=== PATIENT | male | born 1945 | race Caucasian/White ===

== ENCOUNTER 2019-12-28 19:00 | Emergency (ER) | payer MEDICARE, BC, SELFPAY ==
--- NOTE | ~2019-12-28 | XR_ITS ---
XR chest 2V 12/28/2019 19:27 Indication: Shortness of breath. Lung cancer. Procedure: 2 view chest Comparison: Comparison to multiple prior studies sequentially, with oldest reviewed study dated 06/2010. Findings: Cardiomegaly. Pacemaker leads stable. There is bibasilar airspace disease, right greater th an left, compatible with pneumonia. There are emphysematous changes. Small pleural effusions. Healed left clavicular fracture. Impression: 1: Bibasilar airspace disease, compatible with pneumonia. 2: Small pleural effusions. 3: Cardiomegaly. Reviewed, dictated and finalized at location A. RITY COORDINATOR Impression: 1: Bibasilar airspace disease, compatible with pneumonia. 2: Small pleural effusions. 3: Cardiomegaly.
[2019-12-28 18:59] VITALS: BP 112/78; PULSE 106; RESP 24; TEMP 36.5; O2SAT 100
--- NOTE | 2019-12-28 19:03 | ED.SOB ---
HPI - SOB/Dyspnea General Chief Complaint: Shortness of Breath/Dyspnea Stated Complaint: sob Time Seen by Provider: 12/28/19 19:02 Source: patient and family (spouse) Mode of arrival: EMS Limitations: no limitations History of Present Illness HPI Narrative: The pt is a 74 y/o male who presents to the ED with c/o SOB, via EMS, that began 3 hours ago. The pt states that his SOB started soon after putting his CPAP on tonight, but his argues and notes that his CPAP helped him the night before. The currently feels better in the ED bed after O2 administration. He reports a cough for the last week, chills, generalized weakness, and chronic shakes, but denies fever or CP. The pt has COPD and stage 4 lung CA. Per , the pt was responding very well to chemotherapy and was switched over to immunotherapy at the end of September. She states that the pt's CA is almost all gone but is concerned that the pt has pneumonia. MD elicited complaint: shortness of breath Pertinent past history: COPD and other (lung CA) Onset (ago): hour(s) (3) Relieving factors: oxygen Associated symptoms: cough and other (chills, generalized weakness, chronic shakes) Related Data Home Medications Medication Instructions Recorded Confirmed albuterol sulfate [ProAir HFA] 2 puff INHALATION QID PRN 09/11/19 10/31/19 alprazolam 2 mg PO HS 09/11/19 10/31/19 amitriptyline 25 mg PO HS 09/11/19 10/31/19 aspirin [Aspirin Childrens] 81 mg PO HS 09/11/19 10/31/19 clopidogrel 75 mg PO DAILY 09/11/19 10/31/19 dicyclomine 20 mg PO PRN 09/11/19 10/31/19 furosemide 20 mg PO DAILY 09/11/19 10/31/19 ipratropium-albuterol 3 ml INHALATION QID PRN 09/11/19 10/31/19 linaclotide [Linzess] 290 mcg PO DAILY 09/11/19 10/31/19 mexiletine 150 mg PO Q12H 09/11/19 10/31/19 simvastatin 40 mg PO HS 09/11/19 10/31/19 ferrous sulfate [Iron (ferrous 325 mg PO BID 10/03/19 10/31/19 sulfate)] gabapentin 300 mg PO TID 10/03/19 10/31/19 Allergies Allergy/AdvReac Type Severity Reaction Status Date / Time hydromorphone AdvReac Severe Hallucinati Verified 12/28/19 19:04 ng morphine AdvReac Severe Nausea and Verified 12/28/19 19:04 Vomiting Review of Systems Review of Systems: All systems reviewed & are unremarkable except as noted in HPI and below Constitutional: Constitutional: Reports chills, Denies fever(s), Reports weakness (generalized) and Reports other (chronic shakes) Cardiovascular: Cardiovascular: Denies chest pain Respiratory: Respiratory: Reports cough and Reports dyspnea PMFSH Past Medical History Medical History (Updated 12/29/19 @ 03:37 by Freddie Thomas MD) Anxiety Arthritis Asthma Back pain CAD (coronary artery disease) COPD (chronic obstructive pulmonary disease) Hyperlipidemia Hypertension Irregular heartbeat Irritable bowel Kidney stones Lung cancer Myocardial infarct Pacemaker Port-A-Cath in place Shingles Sleep apnea Surgical History Surgical History (Updated 12/28/19 @ 19:20 by Norah Mejia) H/O cardiac radiofrequency ablation H/O cystoscopy H/O Spinal surgery History of cardiac cath History of cataract surgery History of coronary artery stent placement Family History Family History Sibling Family history of cardiovascular disease Social History Social History (Updated 12/28/19 @ 19:20 by Norah Mejia) Smoking status: Former smoker Smoking end date: 05/27/19 Alcohol intake: never Exam Const: General: ill appearing chronically and other (elderly) HENMT: Mouth: Yes lip normal and Yes moist mucous membranes Eyes: Conjunctivae: conjunctivae normal Pupils: Equal, round and reactive pupils present Resp: Effort & Inspection: normal respiratory effort and tachypneic (mildy) Auscultation: wheezes expiratory wheezes Cardio: Rate: tachycardic (mildy) Rhythm: regular rhythm GI: GI Palp: Yes Soft to palpation and No Tenderness to palpation pres
[2019-12-28] MEDS: SODIUM CHLORIDE 0.9% IV 500 ML 999 ML IV CONT (19:50)
[2019-12-28 19:52] LABS: Basophils Percent Auto 0.4 % (0.2-1.2); Eosinophils Absolute Auto 0.2 K/mm3 (0-0.3); Eosinophils Percent Auto 3.5 % (0-4.4); Hematocrit 33.7 % (42.0-52.0); Hemoglobin 10.6 g/dL (14.0-18.0); Immature Granulocyte Absolute 0.02 K/mm3 (0.00-0.031); Immature Granulocyte Percent A 0.4 % (0-0.5); Lymphocytes Absolute Auto 0.84 K/mm3 (0.9-3.2); Lymphocytes Percent Auto 15.3 % (18.3-44.2); Mean Corpuscular HGB Conc 31.5 g/dl (32-36); Mean Corpuscular Hemoglobin 31.5 pg (26-34); Mean Corpuscular Volume 100.3 fl (80-100); Mean Platelet Volume 9.9 fl (7.4-10.4); Monocytes Absolute Auto 0.4 K/mm3 (0.1-0.6); Monocytes Percent Auto 7.5 % (2.6-8.5); Neutrophils Percent Auto 72.9 % (45.5-73.1); Platelet Count Result 191 k/mm3 (150-375); Red Blood Count 3.36 M/mm3 (4.6-6.20); Red Cell Distribution Width 14.1 % (11.5-14.5); White Blood Count 5.5 K/mm3 (4.5-10.0)
[2019-12-28 20:06] VITALS: BP 114/50; PULSE 96; RESP 18; O2SAT 98
[2019-12-28 20:07] LABS: Blood Urea Nitrogen 19 mg/dL (9-20); Carbon Dioxide 22 mmol/L (22-30); Chloride 103 mmol/L (98-107); Estimated CRCL calculation 52 ml/min; Estimated Glomerular Filt Rate > 60; Glucose 110 mg/dL (75-110); Potassium 3.2 mmol/L (3.4-5.0); Sodium 134 mmol/L (137-145)
[2019-12-28] MEDS: AMOXICILLIN/CLAVULANATE K 875-125 MG TAB 1 TABLET PO (21:08)
[2019-12-28] MEDS: AZITHROMYCIN 250 MG TABLET 500 MG PO (21:08)
[2019-12-28 21:17] VITALS: BP 127/77; PULSE 84; RESP 20; O2SAT 98
== END 2019-12-28 21:19 | disposition home or self-care (01) ==
PROVIDERS: Emergency Provider Emergency Medicine; PCP Internal Medicine
DX: J18.9 Pneumonia, unspecified organism (principal); J44.9 Chronic obstructive pulmonary disease, unspecified; C34.90 Malignant neoplasm of unspecified part of unspecified bronchus or lung; M19.90 Unspecified osteoarthritis, unspecified site; F41.9 Anxiety disorder, unspecified; I25.10 Atherosclerotic heart disease of native coronary artery without angina pectoris; E78.5 Hyperlipidemia, unspecified; I10 Essential (primary) hypertension; K58.9 Irritable bowel syndrome, unspecified; Z87.442 Personal history of urinary calculi; I25.2 Old myocardial infarction; Z95.0 Presence of cardiac pacemaker; G47.30 Sleep apnea, unspecified; Z95.5 Presence of coronary angioplasty implant and graft; Z98.49 Cataract extraction status, unspecified eye; Z87.891 Personal history of nicotine dependence; Z79.82 Long term (current) use of aspirin; I51.7 Cardiomegaly
CPT/HCPCS: 36415; 71046; 80048; 85025; 96360; 99283; A9270; J7040

== ENCOUNTER 2020-01-17 11:08 | Outpatient (CLI) | payer MEDICARE, BC, SELFPAY ==
[2020-01-17 12:27] LABS: Basophils Percent Auto 0.3 % (0.2-1.2); Eosinophils Absolute Auto 0.2 K/mm3 (0-0.3); Eosinophils Percent Auto 2.6 % (0-4.4); Hematocrit 37.2 % (42.0-52.0); Hemoglobin 11.6 g/dL (14.0-18.0); Immature Granulocyte Absolute 0.02 K/mm3 (0.00-0.031); Immature Granulocyte Percent A 0.3 % (0-0.5); Lymphocytes Percent Auto 17.5 % (18.3-44.2); Mean Corpuscular HGB Conc 31.2 g/dl (32-36); Mean Corpuscular Hemoglobin 31.4 pg (26-34); Mean Corpuscular Volume 100.8 fl (80-100); Mean Platelet Volume 10.1 fl (7.4-10.4); Monocytes Absolute Auto 0.5 K/mm3 (0.1-0.6); Monocytes Percent Auto 7.2 % (2.6-8.5); Neutrophils Absolute Auto 4.5 K/mm3 (1.3-6.7); Neutrophils Percent Auto 72.1 % (45.5-73.1); Platelet Count Result 198 k/mm3 (150-375); Red Blood Count 3.69 M/mm3 (4.6-6.20); Red Cell Distribution Width 13.8 % (11.5-14.5); White Blood Count 6.3 K/mm3 (4.5-10.0)
[2020-01-17 12:38] LABS: Blood Urea Nitrogen 26 mg/dL (9-20); Calcium 8.7 mg/dL (8.4-10.2); Carbon Dioxide 29 mmol/L (22-30); Chloride 102 mmol/L (98-107); Estimated Glomerular Filt Rate > 60; Glucose 87 mg/dL (75-110); Potassium 3.8 mmol/L (3.4-5.0); Sodium 139 mmol/L (137-145)
== END 2020-01-17 11:09 | disposition home or self-care (01) ==
PROVIDERS: PCP Internal Medicine; Visit Provider Internal Medicine Hematology & Oncology
DX: C34.92 Malignant neoplasm of unspecified part of left bronchus or lung (principal)
CPT/HCPCS: 36415; 36592; 80048; 85025

== ENCOUNTER 2020-01-20 14:59 | Outpatient (CLI) | payer MEDICARE, BC, SELFPAY ==
--- NOTE | ~2020-01-20 | CT_ITS ---
EXAMINATION: CT chest w con DATE: 01/20/2020 15:35 INDICATION: Left lung cancer TECHNIQUE: Transaxial computed tomographic images of the chest were obtained after the administration of 75 cc of Omnipaque 350 intravenous contrast. The dose-length product (DLP) was 151.17 mGy-cm. Ite rative reconstruction was used. COMPARISON: 10/14/2019 FINDINGS: A 2.5 x 1.5 cm nodule of the left upper lobe measured 1.8 x 1.0 cm on the most recent tyler rison. There is a new 2.5 x 1.5 cm nodular opacity of the right lower lobe on image 106. There is a 6 mm subpleural nodule of the right lower lobe on image 82. A small to moderate-sized right pleural ef fusion has developed. There is a small left pleural effusion. No pneumothorax is identified. A calcif ied nodule of the right lower lobe is consistent with old granulomatous disease. A right internal jug ular Port-A-Cath ends with its tip in the superior vena cava. There is a dual-lead pacemaker of the l eft chest wall which ends with its leads in the right atrium and right ventricle. Cardiomegaly is not ed. Right hilar and mediastinal lymphadenopathy appears stable. There is a chronic compression fractu re of T12. IMPRESSION: 1. Interval enlargement of a left upper lobe nodule compared to the most recent examination, concerni ng for progression of disease. 2. New nodular opacity of the right lower lobe. Although finding could be due to infection or inflamm ation given the short interval between examinations, malignancy is not excluded. Short-term follow-up is recommended. 3. Small left pleural effusion and new small to moderate size right pleural effusion. 4. Stable right hilar and mediastinal lymphadenopathy, reactive versus metastatic. Reviewed, dictated and finalized at location A. CAL ASSISTANT PER DIEM IMPRESSION: 1. Interval enlargement of a left upper lobe nodule compared to the most recent examination, concerning for progression of disease. 2. New nodular opacity of the right lower lobe. Although finding could be due t o infection or inflammation given the short interval between examinations, dameon gnancy is not excluded. Short-term follow-up is recommended. 3. Small left pleural effusion and new small to moderate size right pleural eff usion. 4. Stable right hilar and mediastinal lymphadenopathy, reactive versus metastat ic.
== END 2020-01-20 15:00 | disposition home or self-care (01) ==
PROVIDERS: PCP Internal Medicine; Visit Provider Internal Medicine Hematology & Oncology
DX: C34.92 Malignant neoplasm of unspecified part of left bronchus or lung (principal); J90 Pleural effusion, not elsewhere classified; R91.8 Other nonspecific abnormal finding of lung field
CPT/HCPCS: 71260; Q9967

== ENCOUNTER 2020-01-28 15:19 | Outpatient (CLI) | payer MEDICARE, BC, SELFPAY ==
--- NOTE | 2020-01-30 00:12 | WPDSIXMINUTE ---
Six Minute Walk Six Minute Walk: DOS: 01/27/2020 REQUESTING: Brennon Alcazar NP REASON FOR TESTING: Shortness of breath SIX MINUTE WALK This test was conducted per ATS guidelines. The initial saturation was 96%, pulse was 92. The patient walked for 6 minutes without stopping, with a drop in saturation to 93% with increase in heart rate to 152 at 3 minutes. During recovery, pulse decreased to 102, saturation was 99%. The distance walked was 225 feet/68.5 meters. This is less than predicted for his age. He used a cane then a walker during the study. He rested for 20 seconds due to shortness of breath. IMPRESSION: This 6 minute walk shows no significant hypoxemia, and no need for supplemental oxygen with exertion. Distance walked is less than expected for age. Adela Dunham MD
== END 2020-01-28 15:20 | disposition home or self-care (01) ==
LOC: ANHPFT 15:19
PROVIDERS: PCP Internal Medicine; Visit Provider Nurse Practitioner Family
DX: R06.02 Shortness of breath (principal)
CPT/HCPCS: 94618

== ENCOUNTER 2020-02-07 17:17 | Inpatient (IN) | payer MEDICARE, BC, SELFPAY ==
--- NOTE | ~2020-02-07 | XR_ITS ---
XR chest 2V 02/07/2020 17:49 Indication: Shortness of breath Procedure: 2 view chest Comparison: Comparison to multiple prior studies sequentially, with oldest reviewed study dated 06/2018. Findings: Cardiomegaly. Bibasilar airspace disease, compatible with pneumonia. Small pleural effusion s. Port catheter tip in the SVC. No pneumothorax or edema. There is a healed left clavicular fracture . Impression: 1: Bibasilar pneumonia with small pleural effusions. Reviewed, dictated and finalized at location A. Impression: 1: Bibasilar pneumonia with small pleural effusions.
--- NOTE | ~2020-02-07 | XR_ITS ---
XR chest 2V DATE: 02/10/2020 13:13 INDICATION: Cough. Pneumonia. Lung cancer. TECHNIQUE: AP and lateral views COMPARISON: 02/06/2022 view chest FINDINGS: Left-sided defibrillator/pacemaker device with leads overlying right atrium and right ventr icle. Right internal jugular Port-A-Cath catheter tip overlies the superior vena cava near the right atrial junction. Cardiomegaly. There is pulmonary vascular redistribution consistent with pulmonary venous hypertensio n. There are mild bilateral pleural effusions. There are patchy infiltrates in both lower lung zones which appears stable or mildly improved since . Old healed fracture deformity of the left clavicular shaft. Diffuse osteopenia. There is mild dextro scoliosis and moderately prominent degenerative spurring of the thoracic spine. IMPRESSION: Stable or mildly improved bilateral lower lung infiltrates since 02/07/2020 Cardiomegaly, pulmonary vascular redistribution, mild bilateral pleural effusions, suggesting mild co ngestive heart failure Reviewed, dictated and finalized at location B. IMPRESSION: Stable or mildly improved bilateral lower lung infiltrates since Cardiomegaly, pulmonary vascular redistribution, mild bilateral pleural effusio ns, suggesting mild congestive heart failure
--- NOTE | ~2020-02-07 | NM_ITS ---
EXAMINATION: NM hepatobiliary w pharm EXAM DATE: 02/12/2020 13:02 INDICATION: Right upper quadrant pain, possible acute cholecystitis. Gallbladder wall thickening, cho lelithiasis. TECHNIQUE: 5 mCi Tc-99m mebrofenin (Choletec) was administered intravenously. Scintigraphic images o f the abdomen were obtained for one hour. At the 1 hour time point, 1.0 mcg sincalide (Kinevac) was a dministered by slow intravenous infusion, and imaging was continued for 30 minutes. Gallbladder eject ion fraction was calculated by the technologist. Correlation is made to right upper quadrant sonogram from yesterday. FINDINGS: There is normal clearance of radiotracer from the blood pool. There is homogeneous tracer u ptake by the liver. Activity progresses to the gallbladder and bowel. The gallbladder ejection fract ion (GBEF) is 1 % (most patients with gallbladder dysfunction have GBEF < 35%, but there is overlap w ith the normal range of 10-90%). IMPRESSION: Gallbladder ejection fraction 1 % consistent with gallbladder dysfunction and/or chronic cholecystitis. Reviewed, dictated and finalized at location A. IMPRESSION: Gallbladder ejection fraction 1 % consistent with gallbladder dysf unction and/or chronic cholecystitis.
--- NOTE | ~2020-02-07 | US_ITS ---
EXAMINATION: US right upper quadrant DATE: 02/11/2020 17:15 INDICATION: Acute transaminitis TECHNIQUE: Multiple grayscale and Doppler ultrasound images of the abdomen were obtained. COMPARISON: CT, 10/14/2019 FINDINGS: The head and and body of the pancreas are normal. The pancreatic tail is obscured by bowel gas. There is a right pleural effusion and a small amount of right upper quadrant ascites. The liver is normal with normal echogenicity and echotexture. No surface nodularity. Normal hepatopetal flow in the main portal vein. Stones are present in the gallbladder. There is gallbladder wall edema and wal l thickening measuring up to 5 mm. The normal common bile duct measures 4 mm. There was no sonographi c Aviles sign. IMPRESSION: 1. Cholelithiasis with gallbladder wall thickening and right upper quadrant ascites. Findings could r eflect acute cholecystitis. Consider nuclear hepatobiliary scan. Reviewed, dictated and finalized at location A. IMPRESSION: 1. Cholelithiasis with gallbladder wall thickening and right upper quadrant asc ites. Findings could reflect acute cholecystitis. Consider nuclear hepatobiliar y scan.
[2020-02-07 17:16] VITALS: BP 122/96; PULSE 118; RESP 21; TEMP 36.6; O2SAT 98
--- NOTE | 2020-02-07 17:34 | ED.SOB ---
HPI - SOB/Dyspnea General Chief Complaint: Shortness of Breath/Dyspnea Stated Complaint: SOB Time Seen by Provider: 02/07/20 17:18 Source: patient Mode of arrival: EMS Limitations: no limitations History of Present Illness HPI Narrative: A 74 y/o male pt presents to the ED, via EMS from home, with c/o SOB x a couple of months. Pt states his SOB began worsening last night and notes coughing up yellow sputum today. Pt notes feeling shaky, but denies CP, N/V/D, or fever/chills/sweats. He states that he is supposed to have fluid drained off of his lungs on 02/17/2020. Pt notes having CA in his lt lung that has spread. He states that his oncologist is Dr. Pride. He denies using O2 at home, but he is on O2 x 4L via NC with an O2 sat of 98% in the ED. MD elicited complaint: shortness of breath and cough Pertinent past history: other (lung CA) Onset (ago): month(s) Timing: progressively worsening Associated symptoms: cough, sputum production (yellow) and other (shaky) Related Data Home Medications Medication Instructions Recorded Confirmed albuterol sulfate [ProAir HFA] 2 puff INHALATION QID PRN 09/11/19 02/07/20 alprazolam 1 mg PO TID PRN 09/11/19 02/07/20 aspirin [Aspirin Childrens] 81 mg PO HS 09/11/19 02/07/20 clopidogrel 75 mg PO HS 09/11/19 02/07/20 dicyclomine 20 mg PO PRN PRN 09/11/19 02/07/20 furosemide 20 mg PO DAILY 09/11/19 02/08/20 linaclotide [Linzess] 290 mcg PO DAILY 09/11/19 02/07/20 simvastatin 40 mg PO HS 09/11/19 02/07/20 ferrous sulfate [Iron (ferrous 325 mg PO BID 10/03/19 02/07/20 sulfate)] gabapentin 300 mg PO TID 10/03/19 02/07/20 budesonide 0.5 mg/2 mL suspension 0.5 mg INHALATION BID ml 01/20/20 01/20/20 for nebulization guaifenesin 600 mg tablet, 600 mg PO Q12H 01/20/20 02/07/20 extended release 12 hr ipratropium bromide 0.02 % 2.5 ml INHALATION QID PRN 01/20/20 02/07/20 solution for inhalation mexiletine 150 mg capsule 150 mg PO TID cap 01/20/20 02/07/20 ondansetron 4 mg disintegrating 4 mg PO Q8H 01/20/20 02/07/20 tablet zolpidem 10 mg PO HS PRN 02/07/20 02/08/20 Allergies Allergy/AdvReac Type Severity Reaction Status Date / Time hydromorphone AdvReac Severe Hallucinati Verified 02/07/20 17:29 ng morphine AdvReac Severe Nausea and Verified 02/07/20 17:29 Vomiting Review of Systems Review of Systems: All systems reviewed & are unremarkable except as noted in HPI and below Constitutional: Constitutional: Denies chills, Denies excessive sweating, Denies fever(s) and Reports other (shaky) Cardiovascular: Cardiovascular: Denies chest pain Respiratory: Respiratory: Reports cough (with yellow sputum) and Reports dyspnea Gastrointestinal: Gastrointestinal: Denies diarrhea, Denies nausea and Denies vomiting PMFSH Past Medical History Medical History Anxiety Arthritis Asthma Back pain CAD (coronary artery disease) COPD (chronic obstructive pulmonary disease) Hyperlipidemia Hypertension Irregular heartbeat Irritable bowel Kidney stones Lung cancer Myocardial infarct Pacemaker Port-A-Cath in place Shingles Sleep apnea Surgical History Surgical History H/O cardiac radiofrequency ablation H/O cystoscopy H/O Spinal surgery History of cardiac cath History of cataract surgery History of coronary artery stent placement Family History Family History Sibling Family history of cardiovascular disease Congestive heart failure Acute myocardial infarction Mother Acute myocardial infarction Congestive heart failure Father Acute myocardial infarction Congestive heart failure Sibling Acute myocardial infarction Congestive heart failure Asthma Sibling Asthma Social History Social History Smoking packs per day: 1 Smoking cigarettes per day: 20.0 Y
--- NOTE | 2020-02-07 17:41 | ECG_ITS ---
Measurements Intervals [place] Rate: 116 P: 113 DC: 162 QRS: -68 QRSD: 144 T: 76 QT: 368 QTc: 513 Interpretive Statements SINUS TACHYCARDIA FREQUENT VENTRICULAR PREMATURE COMPLEXES POSSIBLE LEFT ATRIAL ENLARGEMENT LEFT AXIS DEVIATION INTRAVENTRICULAR CONDUCTION DELAY BORDERLINE ST-T WAVE ABNORMALITY- LATERAL LEADS BASELINE WANDER- V1-V3, V6 ABNORMAL ECG Electronically Signed On 02-08-2020 7:52:03 CDT by Ramses Rodriguez D.O.
[2020-02-07 18:24] LABS: Hematocrit 37.7 % (42.0-52.0); Hemoglobin 11.9 g/dL (14.0-18.0); Mean Corpuscular HGB Conc 31.6 g/dl (32-36); Mean Corpuscular Volume 98.2 fl (80-100); Mean Platelet Volume 10.3 fl (7.4-10.4); Platelet Count Result 153 k/mm3 (150-375); Red Blood Count 3.84 M/mm3 (4.6-6.20); Red Cell Distribution Width 14.1 % (11.5-14.5)
[2020-02-07] MEDS: IPRATROPIUM BR 0.02% INH SOLN 0.5 MG/2.5 ML VIAL INHALATION (18:26)
[2020-02-07 18:27] VITALS: PULSE 113; RESP 20
[2020-02-07 18:27] LABS: INR 1.3; Lactic Acid Reflex 1.3 mmol/L (0.7-2.1); Prothrombin Time 16.1 Seconds (11.1-14.7)
[2020-02-07] MEDS: ALBUTEROL SULFATE NEB 2.5 MG/0.5 ML INH 5 MG INHALATION (18:27)
[2020-02-07 18:28] LABS: Partial Thromboplastin Time 42.8 SECONDS (22.3-36.8)
[2020-02-07 18:29] LABS: Alanine Aminotransferase 17 U/L (4-50); Albumin Level 3.6 g/dL (3.5-5.1); Alkaline Phosphatase 63 U/L (38-126); Aspartate Amino Transferase 21 U/L (17-59); Bilirubin,Total 0.7 mg/dL (0.2-1.3); Blood Urea Nitrogen 29 mg/dL (9-20); Calcium 8.6 mg/dL (8.4-10.2); Carbon Dioxide 25 mmol/L (22-30); Chloride 101 mmol/L (98-107); Estimated CRCL calculation 54 ml/min; Estimated Glomerular Filt Rate > 60; Glucose 117 mg/dL (75-110); Potassium 4.2 mmol/L (3.4-5.0); Sodium 136 mmol/L (137-145)
[2020-02-07 18:32] VITALS: BP 114/81; PULSE 113; RESP 20; O2SAT 100
[2020-02-07 18:35] VITALS: PULSE 112; RESP 25
[2020-02-07 18:37] LABS: NT Pro B Type Natriuretic Pept 29600 PG/ML (5-100)
[2020-02-07 18:47] LABS: Lymphocytes Absolute Manual 0.33 K/mm3 (1.1-4.5); Monocytes Absolute Manual 0.55 K/mm3 (0.1-0.90); Monocytes Percent Manual 5 % (3-9); Neutrophils Percent Manual 92 % (46-73); Total Cells Counted 100
[2020-02-07 18:48] LABS: Platelet Estimate Adequate (Adequate)
[2020-02-07 18:49] LABS: Hypochromasia 1+ (NORMAL)
[2020-02-07] MEDS: FUROSEMIDE INJ 40 MG/4 ML VIAL IV PUSH ×2 (20:32→22:43)
--- NOTE | 2020-02-07 20:56 | PM.IMHP ---
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 He denies any fever or chills, no sore throat, chest pain, wheezing, abdominal pain, nausea, vomiting, diarrhea, LE pain or swelling. The patient last had chemotherapy this past Monday. EMS was called today as the patient was severely short of breath at home and he was found to be saturating 90% on room air on their arrival. The patient was brought to the ER and found to be hypoxic on room air. He was continued on 4L of oxygen via NC. CXR was obtained in the ER that demonstrated bibasilar pneumonia with small pleural effusions. We have been asked to admit the patient to the hospital for continued care. He has no other complaints. He recently had an ambulatory sat test which he did not qualify for home oxygen. Review of Systems Review of Systems: All systems reviewed & are unremarkable except as noted in HPI and below PMFSH Past Medical History Medical History Anxiety Arthritis Asthma Back pain CAD (coronary artery disease) COPD (chronic obstructive pulmonary disease) Hyperlipidemia Hypertension Irregular heartbeat Irritable bowel Kidney stones Lung cancer Myocardial infarct Pacemaker Port-A-Cath in place Shingles Sleep apnea Surgical History Surgical History H/O cardiac radiofrequency ablation H/O cystoscopy H/O Spinal surgery History of cardiac cath History of cataract surgery History of coronary artery stent placement Family History Family History Sibling Family history of cardiovascular disease Congestive heart failure Acute myocardial infarction Mother Acute myocardial infarction Congestive heart failure Father Acute myocardial infarction Congestive heart failure Sibling Acute myocardial infarction Congestive heart failure Asthma Sibling Asthma Social History Social History Smoking packs per day: 1 Smoking cigarettes per day: 20.0 Years smoked: 40 Smoking pack-years: 40.00 Smoking status: Former smoker Tobacco type: cigarettes Smoking end date: 05/27/19 Alcohol intake: never Substance use: current Substance use type: marijuana Other substance usage details: medical marijuana 4-5 times a day Gender identity (if verbalized by the patient): Male Spiritual care concerns: No Agree to blood products: Yes Meds Home Medications and Allergies Home Medications Medication Instructions Recorded Confirmed Type albuterol sulfate [ProAir HFA] 2 puff INHALATION QID PRN 09/11/19 01/20/20 History alprazolam 2 mg PO HS 09/11/19 01/20/20 History amitriptyline 25 mg PO HS 09/11/19 01/20/20 History aspirin [Aspirin Childrens] 81 mg PO HS 09/11/19 01/20/20 History clopidogrel 75 mg PO DAILY 09/11/19 01/20/20 History dicyclomine 20 mg PO PRN 09/11/19 01/20/20 History furosemide 20 mg PO DAILY 09/11/19 01/20/20 History linaclotide [Linzess] 290 mcg PO DAILY 09/11/19 01/20/20 History simvastatin 40 mg PO HS 09/11/19 01/20/20 History ferrous sulfate [Iron (ferrous 325 mg PO BID 10/03/19 01/20/20 History sulfate)] gabapentin 300 mg PO TID 10/03/19 01/20/20 History budesonide 0.5 mg/2 mL suspension 0.5 mg INHALATION BID ml 01/20/20 01/20/20 History for nebulization guaifenesin 600 mg tablet, 600 mg PO Q12H PRN 01/20/20 01/20/20 History extended release 12 hr ipratropium bromide 0.02 % 2.5 ml INHALATION QID PRN 01/20/20 01/20/20 History solution for inhalation mexiletine 150 mg capsule 150 mg PO TID cap 12/29
[2020-02-07 22:44] VITALS: BP 141/71; PULSE 106; RESP 18; TEMP 36.7; O2SAT 98
[2020-02-07 22:52] LABS: Add Urine Microscopic? NO; Appearance Urine Clear (Clear); Bilirubin Urine Negative (Negative); Blood Urine Negative (Negative); Color Urine Straw (Yellow); Glucose Urine UA Negative (Negative); Ketones Urine Negative (Negative); Leukocyte Esterase Ur Negative LEU/UL (Negative); Nitrate Urine Negative (Negative); Protein Urine Negative (Negative); Urobilinogen Urine Negative mg/dL (<2.0)
[2020-02-07 22:57] VITALS: BP 104/68; PULSE 109; RESP 26; TEMP 36.6; O2SAT 98
[2020-02-07 23:08] VITALS: BMI 20.9
--- NOTE | 2020-02-07 23:14 | ADMGEN ---
This patient, Marbin Shah Cate, was admitted to Medical Room 342-01. Patient/family oriented to hospital policies and general routines including ID bracelet, bed and alarms, visiting hours, pain management, procedures, bathroom and other care routines, personal items, smoking policy, room service/diet, and visiting hours. Valuables list has been completed. Information on how to activate the Rapid Response Team has been discussed. Patient/Family are encouraged to report perceived risks to care and to ask questions if they do not understand what they are told or what they should do.
[2020-02-08] VITALS (12 sets, daily range): BP systolic 94–106; BP diastolic 50–68; PULSE 68–114; RESP 18–26; TEMP 36.4–37.1; O2SAT 94–99
[2020-02-08] MEDS: SIMVASTATIN 20 MG TABLET PO ×2 (03:59→20:21)
[2020-02-08] MEDS: GABAPENTIN 300 MG CAPSULE PO ×4 (03:59→17:23)
[2020-02-08] MEDS: ALPRAZOLAM 0.5 MG TABLET 1 MG PO ×2 (03:59→20:22)
[2020-02-08] MEDS: ASPIRIN 81 MG CHEWABLE TABLET PO ×2 (03:59→20:22)
[2020-02-08] MEDS: CLOPIDOGREL BISULFATE 75 MG TABLET PO ×2 (04:00→20:22)
[2020-02-08 05:59] LABS: Basophils Percent Auto 0.1 % (0.2-1.2); Eosinophils Percent Auto 0.1 % (0-4.4); Hematocrit 31.1 % (42.0-52.0); Immature Granulocyte Absolute 0.03 K/mm3 (0.00-0.031); Immature Granulocyte Percent A 0.3 % (0-0.5); Lymphocytes Absolute Auto 0.55 K/mm3 (0.9-3.2); Lymphocytes Percent Auto 6.3 % (18.3-44.2); Mean Corpuscular HGB Conc 32.2 g/dl (32-36); Mean Corpuscular Hemoglobin 30.7 pg (26-34); Mean Corpuscular Volume 95.4 fl (80-100); Mean Platelet Volume 10.1 fl (7.4-10.4); Monocytes Absolute Auto 0.6 K/mm3 (0.1-0.6); Monocytes Percent Auto 7.1 % (2.6-8.5); Neutrophils Absolute Auto 7.5 K/mm3 (1.3-6.7); Neutrophils Percent Auto 86.1 % (45.5-73.1); Platelet Count Result 124 k/mm3 (150-375); Red Blood Count 3.26 M/mm3 (4.6-6.20); White Blood Count 8.7 K/mm3 (4.5-10.0)
[2020-02-08 06:11] LABS: Blood Urea Nitrogen 26 mg/dL (9-20); Calcium 8.2 mg/dL (8.4-10.2); Carbon Dioxide 31 mmol/L (22-30); Chloride 98 mmol/L (98-107); Estimated CRCL calculation 52 ml/min; Estimated Glomerular Filt Rate > 60; Glucose 111 mg/dL (75-110); Potassium 3.4 mmol/L (3.4-5.0); Sodium 135 mmol/L (137-145)
[2020-02-08] MEDS: MEXILETINE HCL 150 MG CAPSULE PO ×3 (09:07→17:22)
[2020-02-08] MEDS: FUROSEMIDE 20 MG TABLET PO (09:07)
[2020-02-08] MEDS: FERROUS SULFATE 324 MG TABLET PO ×2 (09:07→17:23)
[2020-02-08] MEDS: ROFLUMILAST 500 MCG TABLET PO (09:07)
[2020-02-08] MEDS: FLUTICASONE PROP 110 MCG INHALER 12 GM (*SP) 1 PUFF INHALATION ×2 (09:43→19:37)
--- NOTE | 2020-02-08 10:20 | P.PNIM_ITS ---
Progress Note: A&P Assessment and Plan (1) Community acquired pneumonia: Qualifiers: Laterality: unspecified laterality Qualified Code(s): J18.9 - Pneumonia, unspecified organism Code(s): J18.9 - Pneumonia, unspecified organism Status: Acute Assessment and Plan: Pt endorses dyspnea today with mild increased work of breathing. He is not in respiratory distress. He is on 1L NC. He endorses minimal cough today. WBC count is trending down. He is afebrile. * Continue bronchodilators * Continue guaifenesin * Continue oxygen supplementation to maintain pulse ox >94% * Continue empiric IV antibiotics azithromycin and ceftriaxone * Blood and sputum cultures are pending. Preliminary sputum cultures with mixed bacterial peewee from the lower respiratory tract. * Urine pneumococcal and legionella antigen ordere * Dr. Dunham has been consulted, recommendations are greatly appreciated (2) Squamous cell carcinoma of left lung: Code(s): C34.92 - Malignant neoplasm of unspecified part of left bronchus or lung Status: Acute Assessment and Plan: Dr. Pride and Dr. Dunham have been consulted. * Will await further recommendations from Dr. Pride who has been consulted (3) Sepsis: Qualifiers: Sepsis acute organ dysfunction status: without acute organ dysfunction Sepsis type: sepsis due to unspecified organism Qualified Code(s): A41.9 - Sepsis, unspecified organism Code(s): A41.9 - Sepsis, unspecified organism Status: Acute Assessment and Plan: Pt met SIRS criteria at admission. Source of sepsis appears to be pulmonary. Lactic acid WNL at admission. WBC count has normalized. BP is soft today. * BP is stable at this time. Pt has HFrEF of 30-35% so will only add IV fluids if BP drops. He is not tachycardic. * Continue empiric IV azithromycin and ceftriaxone * Cultures pending (4) Normocytic anemia: Code(s): D64.9 - Anemia, unspecified Status: Acute Assessment and Plan: * No signs of acute blood loss * Continue ferrous sulfate 325 PO BID * Will monitor hemoglobin and hematorcrit * Transfuse prn (5) COPD (chronic obstructive pulmonary disease): Qualifiers: COPD type: unspecified COPD Qualified Code(s): J44.9 - Chronic obstructive pulmonary disease, unspecified Code(s): J44.9 - Chronic obstructive pulmonary disease, unspecified Status: Suspected Assessment and Plan: * Continue levalbuterol and ipratropium * Continue fluticasone * Continue roflumilast (6) CAD (coronary artery disease): Qualifiers: Associated angina: without angina Coronary Disease-Associated Artery/Lesion type: [place]aver artery [place] vs. transplanted heart: beaver heart Qualified Code(s): I25.10 - Atherosclerotic heart disease of beaver coronary artery without angina pectoris Code(s): I25.10 - Atherosclerotic heart disease of beaver coronary artery without angina pectoris Status: Chronic Assessment and Plan: Pt is s/p pacemaker and defibrillator placement. He has hx of CHF with reduced EF of 30-35% per chart review of echo 06/20/19. He denies chest pain. * Continue plavix * Continue aspirin therapy * Continue to monitor (7) Hyperlipidemia: Qualifiers: Hyperlipidemia type: unspecified Qualified Code(s): E78.5 - Hyperlipidemia, unspecified Code(s): E78.5 - Hyperlipidemia, unspecified Status: Acute Assessment and Plan: * Continue simvas
--- NOTE | 2020-02-08 10:20 | PM.IMPN ---
Progress Note: A&P Assessment and Plan (1) Community acquired pneumonia: Qualifiers: Laterality: unspecified laterality Qualified Code(s): J18.9 - Pneumonia, unspecified organism Code(s): J18.9 - Pneumonia, unspecified organism Status: Acute Assessment and Plan: Pt endorses dyspnea today with mild increased work of breathing. He is not in respiratory distress. He is on 1L NC. He endorses minimal cough today. WBC count is trending down. He is afebrile. Continue bronchodilators Continue guaifenesin Continue oxygen supplementation to maintain pulse ox >94% Continue empiric IV antibiotics azithromycin and ceftriaxone Blood and sputum cultures are pending. Preliminary sputum cultures with mixed bacterial peewee from the lower respiratory tract. Urine pneumococcal and legionella antigen ordere Dr. Dunham has been consulted, recommendations are greatly appreciated (2) Squamous cell carcinoma of left lung: Code(s): C34.92 - Malignant neoplasm of unspecified part of left bronchus or lung Status: Acute Assessment and Plan: Dr. Pride and Dr. Dunham have been consulted. Will await further recommendations from Dr. Pride who has been consulted (3) Sepsis: Qualifiers: Sepsis acute organ dysfunction status: without acute organ dysfunction Sepsis type: sepsis due to unspecified organism Qualified Code(s): A41.9 - Sepsis, unspecified organism Code(s): A41.9 - Sepsis, unspecified organism Status: Acute Assessment and Plan: Pt met SIRS criteria at admission. Source of sepsis appears to be pulmonary. Lactic acid WNL at admission. WBC count has normalized. BP is soft today. BP is stable at this time. Pt has HFrEF of 30-35% so will only add IV fluids if BP drops. He is not tachycardic. Continue empiric IV azithromycin and ceftriaxone Cultures pending (4) Normocytic anemia: Code(s): D64.9 - Anemia, unspecified Status: Acute Assessment and Plan: No signs of acute blood loss Continue ferrous sulfate 325 PO BID Will monitor hemoglobin and hematorcrit Transfuse prn (5) COPD (chronic obstructive pulmonary disease): Qualifiers: COPD type: unspecified COPD Qualified Code(s): J44.9 - Chronic obstructive pulmonary disease, unspecified Code(s): J44.9 - Chronic obstructive pulmonary disease, unspecified Status: Suspected Assessment and Plan: Continue levalbuterol and ipratropium Continue fluticasone Continue roflumilast (6) CAD (coronary artery disease): Qualifiers: Associated angina: without angina Coronary Disease-Associated Artery/Lesion type: [place] artery [place] vs. transplanted heart: [place] heart Qualified Code(s): I25.10 - Atherosclerotic heart disease of [place] coronary artery without angina pectoris Code(s): I25.10 - Atherosclerotic heart disease of [place] coronary artery without angina pectoris Status: Chronic Assessment and Plan: Pt is s/p pacemaker and defibrillator placement. He has hx of CHF with reduced EF of 30-35% per chart review of echo 06/20/19. He denies chest pain. Continue plavix Continue aspirin therapy Continue to monitor (7) Hyperlipidemia: Qualifiers: Hyperlipidemia type: unspecified Qualified Code(s): E78.5 - Hyperlipidemia, unspecified Code(s): E78.5 - Hyperlipidemia, unspecified Status: Acute Assessment and Plan: Continue simvastatin 20mg (8) Congestive heart failure: Code(s): I50.9 - Heart failure, unspecified Status: Acute Assessment and Plan: Echo from 06/20/19 with reduced EF of 30-35%. BNP elevated at 29,600. Pt is s/p lasix IV 40mg IV x2. Pt has faint rales at the bases bilaterally. Suspect that he may have a component of acute on chronic CHF. Continue prior to admission lasix 20mg PO QD Will add IV lasix as needed 2gm sod
[2020-02-08] MEDS: IPRATROPIUM BR 0.02% INH SOLN 0.5 MG/2.5 ML VIAL INHALATION ×2 (15:14→19:37)
[2020-02-08] MEDS: LEVALBUTEROL NEB 1.25 MG/3 ML 0.63 MG INHALATION ×2 (15:14→19:36)
[2020-02-08] MEDS: ONDANSETRON INJ 4 MG/2 ML VIAL IV PUSH (19:41)
[2020-02-08] MEDS: ZOLPIDEM TARTRATE 5 MG TABLET 10 MG PO (20:30)
[2020-02-09] VITALS (9 sets, daily range): BP systolic 99–107; BP diastolic 60–70; PULSE 76–103; RESP 16–22; TEMP 36.4–36.9; O2SAT 95–100
[2020-02-09] MEDS: IPRATROPIUM BR 0.02% INH SOLN 0.5 MG/2.5 ML VIAL INHALATION (00:58)
[2020-02-09] MEDS: LEVALBUTEROL NEB 1.25 MG/3 ML 0.63 MG INHALATION (00:58)
[2020-02-09] MEDS: MEXILETINE HCL 150 MG CAPSULE PO ×3 (08:43→16:53)
[2020-02-09] MEDS: FUROSEMIDE 20 MG TABLET PO (08:46)
[2020-02-09] MEDS: GABAPENTIN 300 MG CAPSULE PO ×3 (08:46→16:55)
[2020-02-09] MEDS: ROFLUMILAST 500 MCG TABLET PO (08:46)
[2020-02-09] MEDS: FERROUS SULFATE 324 MG TABLET PO ×2 (08:47→16:55)
[2020-02-09] MEDS: polyethylene glycoL 3350 17 GM POWD.PACK PO (09:25)
[2020-02-09] MEDS: DOCUSATE SODIUM 100 MG CAPSULE PO ×2 (09:57→21:33)
--- NOTE | 2020-02-09 14:48 | PM.IMPN ---
Progress Note: A&P Assessment and Plan (1) Community acquired pneumonia: Qualifiers: Laterality: unspecified laterality Qualified Code(s): J18.9 - Pneumonia, unspecified organism Code(s): J18.9 - Pneumonia, unspecified organism Status: Acute Assessment and Plan: The pt reports that he is feeling much better today. He is on room air. He denies dyspnea. He reports productive cough. His sputum is opaque/white. Cough is improving. He denies fever, chills, and myalgias. Continue bronchodilators PRN Continue guaifenesin Continue oxygen supplementation to maintain pulse ox >94% Continue empiric IV antibiotics azithromycin and ceftriaxone. Abx were initiated 02/06. Blood cultures with NGTD. Preliminary sputum cultures with mixed bacterial peewee from the lower respiratory tract. Urine pneumococcal and legionella antigen ordered and pending Dr. Dunham has been consulted, recommendations are greatly appreciated (2) Squamous cell carcinoma of left lung: Code(s): C34.92 - Malignant neoplasm of unspecified part of left bronchus or lung Status: Acute Assessment and Plan: Dr. Pride and Dr. Dunham have been consulted. Pt was switched to immunotherapy at the end of September after adequate response to chemotherapy. He is on maintenance chemotherapy per Dr. Pride. CT chest wo contrast 01/21/20 with interval enlargement of left upper lobe nodule compared to most recent exam and a new nodular opacity of the right lower lobe. Will await further recommendations from Dr. Pride who has been consulted (3) Sepsis: Qualifiers: Sepsis acute organ dysfunction status: without acute organ dysfunction Sepsis type: sepsis due to unspecified organism Qualified Code(s): A41.9 - Sepsis, unspecified organism Code(s): A41.9 - Sepsis, unspecified organism Status: Acute Assessment and Plan: Pt met SIRS criteria at admission. Source of sepsis appears to be pulmonary. Lactic acid WNL at admission. BP is soft today. BP is stable at this time. Pt has HFrEF of 30-35%. Cr up to 1.3 today from 1. BUN 35. Will add gentle IV fluids. Continue empiric IV azithromycin and ceftriaxone Blood cultures pending with NGTD (4) Normocytic anemia: Code(s): D64.9 - Anemia, unspecified Status: Acute Assessment and Plan: No signs of acute blood loss Continue ferrous sulfate 325 PO BID Will monitor hemoglobin and hematocrit Transfuse prn (5) COPD (chronic obstructive pulmonary disease): Qualifiers: COPD type: unspecified COPD Qualified Code(s): J44.9 - Chronic obstructive pulmonary disease, unspecified Code(s): J44.9 - Chronic obstructive pulmonary disease, unspecified Status: Suspected Assessment and Plan: Pt does not appear to be in acute exacerbation. Pt had a home oxygen eval with pulmonology and he exhibited no significant hypoxemia or need for supplemental oxygen with exertion. He is stable on room air with O2 sat 96%. Continue levalbuterol and ipratropium, will switch to PRN as that is how pt takes them at home and he is improving Continue fluticasone Continue roflumilast (6) CAD (coronary artery disease): Qualifiers: Associated angina: without angina Coronary Disease-Associated Artery/Lesion type: [place] artery [place] vs. transplanted heart: [place] heart Qualified Code(s): I25.10 - Atherosclerotic heart disease of [place] coronary artery without angina pectoris Code(s): I25.10 - Atherosclerotic heart disease of [place] coronary artery without angina pectoris Status: Chronic Assessment and Plan: Pt is s/p pacemaker and defibrillator placement. He has hx of CHF with reduced EF of 30-35% per chart review of echo 06/20/19. He denies chest pain. Continue plavix Continue aspirin therapy Continue to monitor (7) Hyperlipidemia: Qualifiers: Hyperlipidemia
[2020-02-09 16:20] LABS: Basophils Percent Auto 0.1 % (0.2-1.2); Eosinophils Percent Auto 0.5 % (0-4.4); Hematocrit 35.9 % (42.0-52.0); Hemoglobin 11.3 g/dL (14.0-18.0); Immature Granulocyte Absolute 0.03 K/mm3 (0.00-0.031); Immature Granulocyte Percent A 0.3 % (0-0.5); Lymphocytes Absolute Auto 0.65 K/mm3 (0.9-3.2); Lymphocytes Percent Auto 7.5 % (18.3-44.2); Mean Corpuscular HGB Conc 31.5 g/dl (32-36); Mean Corpuscular Hemoglobin 30.6 pg (26-34); Mean Corpuscular Volume 97.3 fl (80-100); Mean Platelet Volume 10.3 fl (7.4-10.4); Monocytes Absolute Auto 0.6 K/mm3 (0.1-0.6); Monocytes Percent Auto 6.4 % (2.6-8.5); Neutrophils Absolute Auto 7.4 K/mm3 (1.3-6.7); Neutrophils Percent Auto 85.2 % (45.5-73.1); Platelet Count Result 150 k/mm3 (150-375); Red Blood Count 3.69 M/mm3 (4.6-6.20); White Blood Count 8.7 K/mm3 (4.5-10.0)
[2020-02-09 16:33] LABS: Alanine Aminotransferase 23 U/L (4-50); Albumin Level 3.4 g/dL (3.5-5.1); Alkaline Phosphatase 84 U/L (38-126); Aspartate Amino Transferase 29 U/L (17-59); Bilirubin,Total 0.7 mg/dL (0.2-1.3); Blood Urea Nitrogen 35 mg/dL (9-20); Calcium 8.5 mg/dL (8.4-10.2); Carbon Dioxide 28 mmol/L (22-30); Chloride 93 mmol/L (98-107); Estimated CRCL calculation 41 ml/min; Estimated Glomerular Filt Rate 54; Glucose 127 mg/dL (75-110); Sodium 131 mmol/L (137-145)
[2020-02-09] MEDS: DICYCLOMINE HCL 10 MG CAPSULE 20 MG PO (16:53)
--- NOTE | 2020-02-09 18:35 | PM.CNPUL ---
Assessment and Plan Assessment and plan (1) Community acquired pneumonia: Qualifiers: Laterality: unspecified laterality Qualified Code(s): J18.9 - Pneumonia, unspecified organism Code(s): J18.9 - Pneumonia, unspecified organism Status: Acute (2) Squamous cell carcinoma of left lung: Code(s): C34.92 - Malignant neoplasm of unspecified part of left bronchus or lung Status: Acute (3) COPD (chronic obstructive pulmonary disease): Qualifiers: COPD type: unspecified COPD Qualified Code(s): J44.9 - Chronic obstructive pulmonary disease, unspecified Code(s): J44.9 - Chronic obstructive pulmonary disease, unspecified Status: Suspected (4) Hypoxia: Code(s): R09.02 - Hypoxemia Status: Acute (5) SOB (shortness of breath): Code(s): R06.02 - Shortness of breath Status: Acute History of Present Illness History of Present Illness Consult date: 02/09/20 Requesting physician: Mickey Jane MD Chief complaint: PNEUMONIA Narrative: Thank you for the consult. Please see dictation #[id number] ASSESSMENT: Pneumonia, community acquired; failed outpatient treatment. Lung cancer, non-small cell right lung with mets to left lung, right jaw COPD Shortness of breath deconditioning; recent 6 min walk showed no desaturation with exertion; he has limited exercise reserve, could not walk fast enough to enough to desaturate. PLAN: Cornet valve, pulmonary hygiene, bronchodilators, antibiotics, increased activity. He did not qualify for O2 on his out-patient walk study Mar 5. Effusions are too small to tap on last CXR Dr Pride may see regarding increased size of left lung mass; he has not had radiation. [facility] Past Medical History Medical History Anxiety Arthritis Asthma Back pain CAD (coronary artery disease) COPD (chronic obstructive pulmonary disease) Hyperlipidemia Hypertension Irregular heartbeat Irritable bowel Kidney stones Lung cancer Myocardial infarct Pacemaker Port-A-Cath in place Shingles Sleep apnea Surgical History Surgical History H/O cardiac radiofrequency ablation H/O cystoscopy H/O Spinal surgery History of cardiac cath History of cataract surgery History of coronary artery stent placement Family History Family History Sibling Family history of cardiovascular disease Congestive heart failure Acute myocardial infarction Mother Acute myocardial infarction Congestive heart failure Father Acute myocardial infarction Congestive heart failure Sibling Acute myocardial infarction Congestive heart failure Asthma Sibling Asthma Social History Social History Smoking packs per day: 1 Smoking cigarettes per day: 20.0 Years smoked: 68 Smoking pack-years: 68.00 Smoking status: Former smoker Tobacco type: cigarettes Second hand tobacco smoke exposure: Yes Smoking end date: 03/27/19 Alcohol intake: never Substance use: current Substance use type: marijuana Other substance usage details: medical marijuana 4-5 times a day Gender identity (if verbalized by the patient): Male Spiritual care concerns: No Agree to blood products: Yes Meds Home Medications and Allergies Home Medications Medication Instructions Recorded Confirmed Type albuterol sulfate [ProAir HFA] 2 puff INHALATION QID PRN 09/11/19 02/07/20 History alprazolam 1 mg PO TID PRN 09/11/19 02/07/20 History aspirin [Aspirin Childrens] 81 mg PO HS 09/11/19 02/07/20 History clopidogrel 75 mg PO HS 09/11/19 02/07/20 History dicyclomine 20 mg PO PRN PRN 09/11/19 02/07/20 History furosemide 20 mg PO DAILY 09/11/19 02/08/20 History linaclotide [Linzess] 290 mcg PO DAILY 09/11/19 02/07/20 History simvastatin 20 mg PO HS
[2020-02-09 18:49] LABS: Glucose Point of Care 186 (65-105)
[2020-02-09] MEDS: SODIUM CHLORIDE 0.9% IV 1,000 ML 50 ML IV CONT (19:32)
[2020-02-09] MEDS: ONDANSETRON INJ 4 MG/2 ML VIAL IV PUSH (19:33)
[2020-02-09] MEDS: FLUTICASONE PROP 110 MCG INHALER 12 GM (*SP) 1 PUFF INHALATION (20:31)
[2020-02-09] MEDS: CLOPIDOGREL BISULFATE 75 MG TABLET PO (21:33)
[2020-02-09] MEDS: ASPIRIN 81 MG CHEWABLE TABLET PO (21:33)
[2020-02-09] MEDS: SIMVASTATIN 20 MG TABLET PO (21:33)
[2020-02-09] MEDS: ALPRAZOLAM 0.5 MG TABLET 1 MG PO (21:34)
[2020-02-09] MEDS: ZOLPIDEM TARTRATE 5 MG TABLET 10 MG PO (21:34)
[2020-02-10] VITALS (8 sets, daily range): BP systolic 93–110; BP diastolic 60–86; PULSE 89–99; RESP 16–17; TEMP 36.2–36.6; O2SAT 94–96; BMI 21.4
--- NOTE | 2020-02-10 02:39 | CONS_ITS ---
DATE OF CONSULTATION: 02/09/2020 REASON FOR CONSULTATION: Dr. Jane consulted me to see this patient for acute pneumonia. 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 He was admitted on February 06 with 3 days of increasing shortness of breath and yellowish sputum. He failed outpatient antibiotics. He was on Augmentin 875 b.i.d. for 5 days and then azithromycin. He did well when he took the antibiotics, but after completing them, he continue to deteriorate. His last chemotherapy was February 02. He was on chemo and then was switched to immunotherapy with Keytruda. He has not had any radiation. He was increasingly short of breath. His saturation was 90% when EMS arrived. He was placed on supplemental oxygen. His chest x-ray showed bibasilar pneumonia with small effusions. He does not have an oxygen meter at home currently and does not have an Acapella valve, he was planning to get both of these. His main complaint was just simply increasing shortness of breath. He did not have any GI symptoms specifically, but has had vomiting small amount yesterday and today. He is feeling better since admission. He is required some supplemental oxygen on and off throughout the day. His sputum is clear in production, but he still has some difficulty expectorating it. ALLERGIES: HYDROMORPHONE, MORPHINE. HOME MEDICATIONS: 1. Albuterol rescue inhaler 2 puffs q.i.d. p.r.n. shortness of breath. 2. Alprazolam 1 mg p.o. t.i.d. p.r.n. anxiety. 3. Aspirin 81 mg a day. 4. Plavix 75 mg a day. 5. Dicyclomine 20 mg daily. 6. Ferrous sulfate 325 mg b.i.d. 7. Flovent 1 puff q.12 hours. However last office note, the patient was actually on budesonide 0.5 mg inhaled twice a day nebulized. 8. Furosemide 20 mg a day. 9. Gabapentin 300 mg p.o. t.i.d. 10. Guaifenesin 600 mg p.o. q.12 hours. 11. Ipratropium 0.02% nebulized q.i.d. 12. Levalbuterol 0.63 mg per 3 mL nebulized t.i.d. 13. Linzess 290 mcg daily. 14. Mexiletine 150 mg t.i.d. 15. Zofran 4 mg disintegrating tablet q.8 hours p.r.n. nausea. 16. Potassium chloride 20 mEq daily. 17. Roflumilast 500 mcg daily. 18. Simvastatin 20 mg at bedtime. 19. Zolpidem 10 mg at bedtime p.r.n. insomnia. PAST MEDICAL HISTORY: 1. Lung cancer, squamous cell right lung with metastases to the left lung, mediastinum, and a lymph node to the right neck, treated with Dr. Pride at [facility]. No MRI due to his pacemaker. He was treated with chemotherapy, the last treatment was February 02. He was switched to Keytruda. 2. Pacemaker defibrillator in March 2018 following an ablation. 3. Aortic stent. 4. AAA repair in 2009. 5. Decreased LV function, EF is 43% on echo 2017. 6. Irritable bowel. 7. Kidney stones. 8. History of myocardial infarction. 9. Shingles. 10. Obstructive sleep apnea syndrome. 11. Hypertension. 12. Hyperlipidemia. 13. COPD. 14. Back pain. 15. Arthritis. 16. Anxiety. PAST SURGICAL HISTORY: Coronary stents, cataracts, cardiac cath, spinal surgery, cystoscopy, radiofrequency ablation, left Port-A-Cath. SOCIAL HISTORY: Tobacco, a pack per day 40 years, quit on May 27, 2019. No alcohol. FAMILY HISTORY: Siblings had a combination of heart disease, NE, asthma, congestive heart failure. Mother had an NE and congestive heart failure as well as his father same. REVIEW OF SYSTEMS: He has had some decreased appetite. He vomits after eating small amounts of food. There is no history of aspiration. Denies leg swelling. Denies rash. He has had chemo brain with frequent forgetfulness, but this should get better after he finishes treatment. He is very weak, he is short of b
[2020-02-10] MEDS: FLUTICASONE PROP 110 MCG INHALER 12 GM (*SP) 1 PUFF INHALATION ×2 (08:21→22:58)
[2020-02-10] MEDS: ROFLUMILAST 500 MCG TABLET PO (08:41)
[2020-02-10] MEDS: FUROSEMIDE 20 MG TABLET PO (08:41)
[2020-02-10] MEDS: DOCUSATE SODIUM 100 MG CAPSULE PO (08:41)
[2020-02-10] MEDS: MEXILETINE HCL 150 MG CAPSULE PO ×3 (08:41→17:12)
[2020-02-10] MEDS: GABAPENTIN 300 MG CAPSULE PO ×3 (08:41→17:15)
[2020-02-10] MEDS: FERROUS SULFATE 324 MG TABLET PO ×2 (08:41→17:12)
[2020-02-10 10:44] LABS: Basophils Percent Auto 0.1 % (0.2-1.2); Eosinophils Percent Auto 0.5 % (0-4.4); Hematocrit 35.3 % (42.0-52.0); Hemoglobin 11.4 g/dL (14.0-18.0); Immature Granulocyte Absolute 0.03 K/mm3 (0.00-0.031); Immature Granulocyte Percent A 0.4 % (0-0.5); Lymphocytes Absolute Auto 0.68 K/mm3 (0.9-3.2); Lymphocytes Percent Auto 8.4 % (18.3-44.2); Mean Corpuscular HGB Conc 32.3 g/dl (32-36); Mean Corpuscular Hemoglobin 30.7 pg (26-34); Mean Corpuscular Volume 95.1 fl (80-100); Mean Platelet Volume 10.4 fl (7.4-10.4); Monocytes Absolute Auto 0.6 K/mm3 (0.1-0.6); Monocytes Percent Auto 6.9 % (2.6-8.5); Neutrophils Absolute Auto 6.8 K/mm3 (1.3-6.7); Neutrophils Percent Auto 83.7 % (45.5-73.1); Platelet Count Result 156 k/mm3 (150-375); Red Blood Count 3.71 M/mm3 (4.6-6.20); Red Cell Distribution Width 13.7 % (11.5-14.5); White Blood Count 8.1 K/mm3 (4.5-10.0)
[2020-02-10] MEDS: ONDANSETRON INJ 4 MG/2 ML VIAL IV PUSH (10:55)
[2020-02-10 10:57] LABS: Alanine Aminotransferase 261 U/L (4-50); Albumin Level 3.4 g/dL (3.5-5.1); Alkaline Phosphatase 98 U/L (38-126); Aspartate Amino Transferase 250 U/L (17-59); Bilirubin,Total 0.7 mg/dL (0.2-1.3); Blood Urea Nitrogen 39 mg/dL (9-20); Calcium 8.5 mg/dL (8.4-10.2); Carbon Dioxide 28 mmol/L (22-30); Chloride 94 mmol/L (98-107); Estimated CRCL calculation 36 ml/min; Estimated Glomerular Filt Rate 46; Glucose 120 mg/dL (75-110); Magnesium 1.9 mg/dL (1.6-2.3); Potassium 3.7 mmol/L (3.4-5.0); Sodium 133 mmol/L (137-145)
--- NOTE | 2020-02-10 12:13 | PM.PNPUL ---
Progress Note: A&P Assessment and Plan (1) COPD (chronic obstructive pulmonary disease): Qualifiers: COPD type: unspecified COPD Qualified Code(s): J44.9 - Chronic obstructive pulmonary disease, unspecified Code(s): J44.9 - Chronic obstructive pulmonary disease, unspecified Status: Suspected Assessment and Plan: - resume home inhaler/neubilzed regimen (2) Community acquired pneumonia: Qualifiers: Laterality: unspecified laterality Qualified Code(s): J18.9 - Pneumonia, unspecified organism Code(s): J18.9 - Pneumonia, unspecified organism Status: Acute Assessment and Plan: - would switch to oral levaquin to complete 7-10 days of antibiotics upon discharge. - needs f/u CXR in 5-6 weeks to ensure radiographic resolution of pneumonia. - He is at risk for Immunotherapy induced pneumonitis and would consider this diagnosis if he has a relapse after appropriate course of antibiotics Time Spent With Patient Time with patient: 15 - 25 minutes Subjective Date/time seen: 02/10/20 12:13 Interval history: 74 y/o male with COPD, stage IV squamous lung CA presented with bilateral pneumonia, treated with Ceftrixone and Azithroymycin for CAP and despite his failure of Augmentin and Azithromycin as outpatient he is clinically improving, less short of breath and no more sputum production. Although he was on Immunotherapy with Pembrolizumab, pneumontis from this therapy is less likely given his clinical improvement with antibiotic therapy alone and not with systemic steroids. Review of Systems Review of Systems: All systems reviewed & are unremarkable except as noted in HPI and below Exam Const: General: comfortable and no acute distress HENMT: Mouth: Yes moist mucous membranes Neck: Neck: supple and no JVD Resp: Auscultation: wheezes and diminished lung sounds Cardio: Rate: regular rate Rhythm: regular rhythm Heart sounds: no murmurs GI: Auscultation: normal bowel sounds Skin: General skin exam: normal color Extrem: General: normal to inspection, no edema and no pedal edema Objective Data Vital Signs Vital Signs: Vital Signs - 24 hr 02/09/20 13:31 02/09/20 14:00 02/09/20 16:53 Temperature 36.8 C Pulse Rate 103 H 90 103 H Respiratory Rate 20 Blood Pressure 103/60 Pulse Oximetry 96 02/09/20 20:39 02/10/20 06:00 02/10/20 08:25 Temperature 36.4 C 36.3 C L Pulse Rate 103 H 89 Respiratory Rate 16 16 Blood Pressure 99/70 L 106/74 Pulse Oximetry 100 95 94 02/10/20 08:41 Temperature Pulse Rate 97 Respiratory Rate Blood Pressure Pulse Oximetry Intake/Output Intake/Output: Intake & Output 02/07/20 02/08/20 02/09/20 02/10/20 23:59 23:59 23:59 23:59 Intake Total 300 1530 1920 1433 Output Total 800 Balance 613 460 7069 1433 Meds/Results Medications: Active Medications Generic Name Dose Route Start Last Admin Trade Name Freq PRN Reason Stop Dose Admin Acetaminophen 650 mg 02/07/20 20:16 Tylenol Tablet PO Q4H PRN Headache Hydrocodone Bitart/Acetaminophen 1 tab 02/07/20 20:16 Warren 5-325 Mg PO Q4H PRN Pain Rated 4-6 Alprazolam 1 mg 02/08/20 03:10 02/09/20 21:34 Xanax PO 1 mg TID PRN Administration Anxiety Aspirin 81 mg 02/08/20 03:25 02/09/20 21:33 Aspirin Chewable PO 81 mg HS SYLVIA Administration Clopidogrel Bisulfate 75 mg 02/08/20 03:25 02/09/20 21:33 Plavix PO 75 mg HS SYLVIA Administration Dicyclomine HCl 20 mg 02/08/20 03:10 02/09/20 16:53 Bentyl Capsule PO 20 mg PRN PRN Administration Cramps Docusate Sodium 100 mg 02/09/20 09:00 02/10/20 08:41 Colace Capsule PO 100 mg Q12HR SYLVIA Administration Ferrous Sulfate 324 mg 02/08/20 09:00 02/10/20 08:41 Ferrous Sulfate PO 324 mg BID SYLVIA Administration Fluticasone Propionate 1 puff 02/08/20 08:00 02/10/20 08:21 Flovent INHALATION 1 puff Q12HRT S
[2020-02-10] MEDS: CENTRAL LINE FLUSH 10 ML IV PUSH ×2 (18:06→21:23)
--- NOTE | 2020-02-10 19:26 | CONS_ITS ---
DATE OF CONSULTATION: 02/10/2020 REASON FOR CONSULTATION: Metastatic lung cancer. HISTORY OF PRESENTING ILLNESS: This is a 74-year-old pleasant male with history of metastatic non-small cell squamous cell carcinoma diagnosed in April 2019, is status post chemotherapy with carboplatin, Taxol and Keytruda completed in September 2019. He is currently on maintenance, Keytruda treatment started in October 2019. The patient came into the hospital with increasing shortness of breath and cough. Chest x-ray was done that showed bibasilar pneumonia with small pleural effusion. He was treated with IV Rocephin with improvement in his symptoms. He denies any further cough and breathing has improved. Repeat chest x-ray was performed on February 09, that showed improvement in bilateral lower lung infiltrates. REVIEW OF SYSTEMS: A 12-point review of system was reviewed and as per HPI, otherwise, negative. PAST MEDICAL HISTORY: Metastatic non-small cell lung cancer, anxiety, arthritis, asthma, coronary artery disease, COPD, hyperlipidemia, hypertension, irritable bowel syndrome, history of IA, pacemaker placement, Port-A-Cath placement, and sleep apnea. PAST SURGICAL HISTORY: Cataract surgery, coronary artery stent placement, cystoscopy, cardiac radiofrequency ablation, and spinal stenosis surgery. FAMILY HISTORY: Positive for cardiovascular disease. SOCIAL HISTORY: The patient has a history of smoking and quit in May 2019. Denies any alcohol use. HOME MEDICATIONS: Reviewed. ALLERGIES: REVIEWED. PHYSICAL EXAMINATION: GENERAL: This patient is an elderly male, in no apparent distress. Alert and oriented. VITAL SIGNS: Per nursing note. HEENT: Normocephalic, atraumatic. Clear oropharynx. LUNGS: Clear to auscultation bilaterally. CARDIOVASCULAR: Regular rate and rhythm. No murmurs. ABDOMEN: Soft, nontender, nondistended. Bowel sounds are positive in all 4 quadrants. No hepatosplenomegaly. EXTREMITIES: No edema. NEURO EXAM: Grossly intact. LABORATORY DATA: WBC 8.1, hemoglobin 11.4, and platelet 156,000. ASSESSMENT AND PLAN: 1. Bibasilar pneumonia. The patient is a 74-year-old male, who is immunocompromised with ongoing immunotherapy for metastatic non-small cell lung cancer. He was admitted with increasing shortness of breath and cough without any fever. He was diagnosed with pneumonia and was treated with IV antibiotics. He is already feeling better and most likely should be able to go home in next 24 hours. 2. Metastatic non-small cell lung cancer. The patient has completed initial chemotherapy in September 2019, with good response. Currently, he is on maintenance treatment with Keytruda. He will continue to receive Keytruda treatment on every 3 weeks basis in my clinic. 3. Right-sided pleural effusion. Chest x-ray showed minimal pleural effusion. No need for thoracentesis at this time. NAVIN Graciela MARINELLI M.D. FORMULATOR FORMULATOR D Gavi MT: [place]
[2020-02-10] MEDS: ALPRAZOLAM 0.5 MG TABLET 1 MG PO (21:21)
[2020-02-10] MEDS: SIMVASTATIN 20 MG TABLET PO (21:22)
[2020-02-10] MEDS: ZOLPIDEM TARTRATE 5 MG TABLET 10 MG PO (21:22)
[2020-02-10] MEDS: ASPIRIN 81 MG CHEWABLE TABLET PO (21:22)
[2020-02-10] MEDS: CLOPIDOGREL BISULFATE 75 MG TABLET PO (21:22)
--- NOTE | 2020-02-10 22:22 | P.PNIM_ITS ---
Progress Note: A&P Assessment and Plan (1) Community acquired pneumonia: Qualifiers: Laterality: unspecified laterality Qualified Code(s): J18.9 - Pneumonia, unspecified organism Code(s): J18.9 - Pneumonia, unspecified organism Status: Acute Assessment and Plan: The pt is feeling much better. He is mobilizing secretions. * Continue bronchodilators PRN * Continue guaifenesin * Continue oxygen supplementation PRN to maintain pulse ox >94% * Blood cultures with NGTD. Preliminary sputum cultures with mixed bacterial peewee from the lower respiratory tract. * Urine pneumococcal and legionella pending * Dr. Dunham has been consulted, pulmonology recommendations are greatly appreciated - continue empiric IV antibiotics azithromycin and ceftriaxone (initiated 01/09) while inpatient and switch to PO levaquin at discharge to complete a total of 7-10 days of abx. Follow-up CXR in 5-6 weeks to ensure radiographic resolution of PNA. Consider immunotherapy induced pneumonitis if pt relapses after the appropriate course of abx. (2) Squamous cell carcinoma of left lung: Code(s): C34.92 - Malignant neoplasm of unspecified part of left bronchus or lung Status: Acute Assessment and Plan: Dr. Pride is on board. * Recommendations greatly appreciated * He is on maintenance treatment with keytruda and will continue treatments on a [address] Pride * Pt was initially scheduled for thoracentesis outpatient but there is no need for thoracentesis at this time as effusion is small per Dr. Pride (3) Sepsis: Qualifiers: Sepsis acute organ dysfunction status: without acute organ dysfunction Sepsis type: sepsis due to unspecified organism Qualified Code(s): A41.9 - Sepsis, unspecified organism Code(s): A41.9 - Sepsis, unspecified organism Status: Acute Assessment and Plan: Pt met SIRS criteria at admission. Source of sepsis appears to be pulmonary. Lactic acid WNL at admission. * Continue empiric IV azithromycin and ceftriaxone * Blood cultures pending with NGTD (4) Normocytic anemia: Code(s): D64.9 - Anemia, unspecified Status: Chronic Assessment and Plan: Chronic. Hb is stable. * No signs of acute blood loss * Continue ferrous sulfate 325 PO BID * Will monitor hemoglobin and hematocrit * Transfuse prn (5) COPD (chronic obstructive pulmonary disease): Qualifiers: COPD type: unspecified COPD Qualified Code(s): J44.9 - Chronic obstructive pulmonary disease, unspecified Code(s): J44.9 - Chronic obstructive pulmonary disease, unspecified Status: Chronic Assessment and Plan: * Continue levalbuterol and ipratropium PRN * Continue fluticasone * Continue roflumilast (6) CAD (coronary artery disease): Qualifiers: Associated angina: without angina Coronary Disease-Associated Artery/Lesion type: [place] artery [place] vs. transplanted heart: [place] heart Qualified Code(s): I25.10 - Atherosclerotic heart disease of [place] coronary artery without angina pectoris Code(s): I25.10 - Atherosclerotic heart disease of [place] coronary artery without angina pectoris Status: Chronic Assessment and Plan: Pt is s/p pacemaker and defibrillator placement. He has no complaints of chest pain. * Continue plavix * Continue aspirin therapy * Continue to monitor (7) Hyperlipidemia: Qualifiers: Hyperlipidemia type: unspecified
--- NOTE | 2020-02-10 22:22 | PM.IMPN ---
Progress Note: A&P Assessment and Plan (1) Community acquired pneumonia: Qualifiers: Laterality: unspecified laterality Qualified Code(s): J18.9 - Pneumonia, unspecified organism Code(s): J18.9 - Pneumonia, unspecified organism Status: Acute Assessment and Plan: The pt is feeling much better. He is mobilizing secretions. Continue bronchodilators PRN Continue guaifenesin Continue oxygen supplementation PRN to maintain pulse ox >94% Blood cultures with NGTD. Preliminary sputum cultures with mixed bacterial peewee from the lower respiratory tract. Urine pneumococcal and legionella pending Dr. Dunham has been consulted, pulmonology recommendations are greatly appreciated - continue empiric IV antibiotics azithromycin and ceftriaxone (initiated 01/09) while inpatient and switch to PO levaquin at discharge to complete a total of 7-10 days of abx. Follow-up CXR in 5-6 weeks to ensure radiographic resolution of PNA. Consider immunotherapy induced pneumonitis if pt relapses after the appropriate course of abx. (2) Squamous cell carcinoma of left lung: Code(s): C34.92 - Malignant neoplasm of unspecified part of left bronchus or lung Status: Acute Assessment and Plan: Dr. Pride is on board. Recommendations greatly appreciated He is on maintenance treatment with keytruda and will continue treatments on a [address] Pride Pt was initially scheduled for thoracentesis outpatient but there is no need for thoracentesis at this time as effusion is small per Dr. Pride (3) Sepsis: Qualifiers: Sepsis acute organ dysfunction status: without acute organ dysfunction Sepsis type: sepsis due to unspecified organism Qualified Code(s): A41.9 - Sepsis, unspecified organism Code(s): A41.9 - Sepsis, unspecified organism Status: Acute Assessment and Plan: Pt met SIRS criteria at admission. Source of sepsis appears to be pulmonary. Lactic acid WNL at admission. Continue empiric IV azithromycin and ceftriaxone Blood cultures pending with NGTD (4) Normocytic anemia: Code(s): D64.9 - Anemia, unspecified Status: Chronic Assessment and Plan: Chronic. Hb is stable. No signs of acute blood loss Continue ferrous sulfate 325 PO BID Will monitor hemoglobin and hematocrit Transfuse prn (5) COPD (chronic obstructive pulmonary disease): Qualifiers: COPD type: unspecified COPD Qualified Code(s): J44.9 - Chronic obstructive pulmonary disease, unspecified Code(s): J44.9 - Chronic obstructive pulmonary disease, unspecified Status: Chronic Assessment and Plan: Continue levalbuterol and ipratropium PRN Continue fluticasone Continue roflumilast (6) CAD (coronary artery disease): Qualifiers: Associated angina: without angina Coronary Disease-Associated Artery/Lesion type: [place] artery [place] vs. transplanted heart: [place] heart Qualified Code(s): I25.10 - Atherosclerotic heart disease of [place] coronary artery without angina pectoris Code(s): I25.10 - Atherosclerotic heart disease of [place] coronary artery without angina pectoris Status: Chronic Assessment and Plan: Pt is s/p pacemaker and defibrillator placement. He has no complaints of chest pain. Continue plavix Continue aspirin therapy Continue to monitor (7) Hyperlipidemia: Qualifiers: Hyperlipidemia type: unspecified Qualified Code(s): E78.5 - Hyperlipidemia, unspecified Code(s): E78.5 - Hyperlipidemia, unspecified Status: Chronic Assessment and Plan: Continue simvastatin 20mg (8) Congestive heart failure: Code(s): I50.9 - Heart failure, unspecified Status: Chronic Assessment and Plan: BNP elevated at admission. Could be due to cancer vs. CHF with EF 30-35%. Pt responded well to IV diuresis in the ED. Gentle
[2020-02-11] VITALS (8 sets, daily range): BP systolic 94–113; BP diastolic 55–58; PULSE 86–110; RESP 14–22; TEMP 36.1–36.6; O2SAT 91–100
[2020-02-11] MEDS: CENTRAL LINE FLUSH 10 ML IV PUSH ×4 (08:36→21:47)
[2020-02-11] MEDS: FERROUS SULFATE 324 MG TABLET PO ×2 (08:37→17:36)
[2020-02-11] MEDS: MEXILETINE HCL 150 MG CAPSULE PO ×3 (08:37→17:36)
[2020-02-11] MEDS: FUROSEMIDE 20 MG TABLET PO (08:38)
[2020-02-11] MEDS: DOCUSATE SODIUM 100 MG CAPSULE PO ×2 (08:38→21:39)
[2020-02-11] MEDS: GABAPENTIN 300 MG CAPSULE PO ×3 (08:38→17:36)
[2020-02-11 09:10] LABS: Legionella pneumophila Ag Ur Not Detected (Not Detected)
[2020-02-11] MEDS: FLUTICASONE PROP 110 MCG INHALER 12 GM (*SP) 1 PUFF INHALATION ×2 (09:56→20:20)
[2020-02-11] MEDS: CENTRAL LINE FLUSH 20 ML IV PUSH (10:19)
[2020-02-11 10:39] LABS: Basophils Percent Auto 0.2 % (0.2-1.2); Eosinophils Percent Auto 0.7 % (0-4.4); Hematocrit 34.4 % (42.0-52.0); Immature Granulocyte Absolute 0.04 K/mm3 (0.00-0.031); Immature Granulocyte Percent A 0.7 % (0-0.5); Lymphocytes Absolute Auto 0.67 K/mm3 (0.9-3.2); Lymphocytes Percent Auto 11.1 % (18.3-44.2); Mean Corpuscular Hemoglobin 30.6 pg (26-34); Mean Corpuscular Volume 95.6 fl (80-100); Mean Platelet Volume 10.7 fl (7.4-10.4); Monocytes Absolute Auto 0.5 K/mm3 (0.1-0.6); Monocytes Percent Auto 8.4 % (2.6-8.5); Neutrophils Absolute Auto 4.8 K/mm3 (1.3-6.7); Neutrophils Percent Auto 78.9 % (45.5-73.1); Platelet Count Result 132 k/mm3 (150-375); Red Cell Distribution Width 13.5 % (11.5-14.5); White Blood Count 6.1 K/mm3 (4.5-10.0)
[2020-02-11 10:48] LABS: Alanine Aminotransferase 450 U/L (4-50); Albumin Level 3.2 g/dL (3.5-5.1); Alkaline Phosphatase 99 U/L (38-126); Aspartate Amino Transferase 328 U/L (17-59); Bilirubin,Total 0.7 mg/dL (0.2-1.3); Blood Urea Nitrogen 44 mg/dL (9-20); Calcium 8.8 mg/dL (8.4-10.2); Carbon Dioxide 30 mmol/L (22-30); Chloride 95 mmol/L (98-107); Estimated CRCL calculation 39 ml/min; Estimated Glomerular Filt Rate 50; Glucose 125 mg/dL (75-110); Potassium 3.3 mmol/L (3.4-5.0); Sodium 131 mmol/L (137-145)
--- NOTE | 2020-02-11 15:32 | PM.PNPUL ---
Progress Note: A&P Assessment and Plan (1) COPD (chronic obstructive pulmonary disease): Qualifiers: COPD type: unspecified COPD Qualified Code(s): J44.9 - Chronic obstructive pulmonary disease, unspecified Code(s): J44.9 - Chronic obstructive pulmonary disease, unspecified Status: Chronic Assessment and Plan: - resume home inhaler/neubilzed regimen (2) Community acquired pneumonia: Qualifiers: Laterality: unspecified laterality Qualified Code(s): J18.9 - Pneumonia, unspecified organism Code(s): J18.9 - Pneumonia, unspecified organism Status: Acute Assessment and Plan: - would switch to oral levaquin to complete 7-10 days of antibiotics upon discharge. - needs f/u CXR in 5-6 weeks to ensure radiographic resolution of pneumonia. - He is at risk for Immunotherapy induced pneumonitis and would consider this diagnosis if he has a relapse after appropriate course of antibiotics Time Spent With Patient Time with patient: 15 - 25 minutes Subjective Date/time seen: 02/11/20 15:32 Interval history: Feeling well and wants to go home. Review of Systems Review of Systems: All systems reviewed & are unremarkable except as noted in HPI and below Exam Const: General: comfortable and no acute distress HENMT: Mouth: Yes moist mucous membranes Neck: Neck: supple and no JVD Resp: Auscultation: wheezes and diminished lung sounds Cardio: Rate: regular rate Rhythm: regular rhythm Heart sounds: no murmurs GI: Auscultation: normal bowel sounds Skin: General skin exam: normal color Extrem: General: normal to inspection, no edema and no pedal edema Objective Data Vital Signs Vital Signs: Vital Signs - 24 hr 02/10/20 17:12 02/10/20 19:33 02/10/20 23:01 Temperature 36.2 C L Pulse Rate 98 99 Respiratory Rate 17 Blood Pressure 93/60 L Pulse Oximetry 96 94 02/11/20 06:00 02/11/20 08:37 02/11/20 09:56 Temperature 36.6 C Pulse Rate 86 98 Respiratory Rate 14 Blood Pressure 94/55 L Pulse Oximetry 91 94 02/11/20 12:37 02/11/20 14:00 Temperature 36.3 C L Pulse Rate 94 93 Respiratory Rate 18 Blood Pressure 96/56 L Pulse Oximetry 96 Intake/Output Intake/Output: Intake & Output 02/08/20 02/09/20 02/10/20 02/11/20 23:59 23:59 23:59 23:59 Intake Total 1530 1920 3960 470 Output Total 800 1600 Balance 730 1920 2360 470 Meds/Results Medications: Active Medications Generic Name Dose Route Start Last Admin Trade Name Freq PRN Reason Stop Dose Admin Acetaminophen 650 mg 02/07/20 20:16 Tylenol Tablet PO Q4H PRN Headache Hydrocodone Bitart/Acetaminophen 1 tab 02/07/20 20:16 [place] 5-325 Mg PO Q4H PRN Pain Rated 4-6 Alprazolam 1 mg 02/08/20 03:10 02/10/20 21:21 Xanax PO 1 mg TID PRN Administration Anxiety Aspirin 81 mg 02/08/20 03:25 02/10/20 21:22 Aspirin Chewable PO 81 mg HS SYLVIA Administration Clopidogrel Bisulfate 75 mg 02/08/20 03:25 02/10/20 21:22 Plavix PO 75 mg HS SYLVIA Administration Dicyclomine HCl 20 mg 02/08/20 03:10 02/09/20 16:53 Bentyl Capsule PO 20 mg PRN PRN Administration Cramps Docusate Sodium 100 mg 02/09/20 09:00 02/11/20 08:38 Colace Capsule PO 100 mg Q12HR SYLVIA Administration Ferrous Sulfate 324 mg 02/08/20 09:00 02/11/20 08:37 Ferrous Sulfate PO 324 mg BID SYLVIA Administration Fluticasone Propionate 1 puff 02/08/20 08:00 02/11/20 09:56 Flovent INHALATION 1 puff Q12HRT SYLVIA Administration Furosemide 20 mg 02/08/20 09:00 02/11/20 08:38 Lasix Tablet PO 20 mg DAILY SYLVIA Administration Gabapentin 300 mg 02/08/20 03:30 02/11/20 12:38 Neurontin PO 300 mg TID SYLVIA Administration Guaifenesin 600 mg 02/08/20 09:00 02/11/20 08:37 Mucinex 12 Hr Tab PO 600 mg Q12HR SYLVIA Administration Heparin Sodium (Porcine) 500 units 02/10/20 09:40 Heparin Sod
--- NOTE | 2020-02-11 17:38 | P.PNIM_ITS ---
Progress Note: A&P Assessment and Plan (1) Community acquired pneumonia: Qualifiers: Laterality: unspecified laterality Qualified Code(s): J18.9 - Pneumonia, unspecified organism <Allyn Larry Santiago, PA-C - Last Filed: 02/11/20 18:13> Code(s): J18.9 - Pneumonia, unspecified organism <Allyn JCate Santiago, PA-C - Last Filed: 02/11/20 18:13> Status: Acute <Allyn GaryCate Stimac, PA-C - Last Filed: 02/11/20 18:13> Assessment and Plan: The pt is feeling much better today, mobilizing secretions, and lungs are fairly clear. * Continue bronchodilators PRN * Continue guaifenesin * Continue oxygen supplementation PRN to maintain pulse ox >94% * Blood cultures with NGTD. Final sputum cultures with mixed bacterial peewee from the lower respiratory tract. * Urine pneumococcal pending. Urine legionella antigen not detected. * Dr. Dunham has been consulted, pulmonology recommendations are greatly appreciated - continue empiric IV antibiotics azithromycin and ceftriaxone (initiated 01/09) while inpatient and switch to PO levaquin tomororw to complete a total of 7-10 days of abx. Follow-up CXR in 5-6 weeks to ensure radiographic resolution of PNA. Consider immunotherapy induced pneumonitis if pt relapses after the appropriate course of abx. <Allyn Santiago, PA-C - Last Filed: 02/11/20 18:13> (2) Squamous cell carcinoma of left lung: Code(s): C34.92 - Malignant neoplasm of unspecified part of left bronchus or lung <Allyn Santiago, PA-C - Last Filed: 02/11/20 18:13> Status: Acute <Allyn Santiago, PA-C - Last Filed: 02/11/20 18:13> Assessment and Plan: Dr. Pride is on board. * Recommendations greatly appreciated * He is on maintenance treatment with keytruda and will continue treatments on a [address] Pride * Pt was initially scheduled for thoracentesis outpatient but there is no need for thoracentesis at this time as effusion is small per Dr. Pride <Allyn Santiago, PA-C - Last Filed: 02/11/20 18:13> (3) Sepsis: Qualifiers: Sepsis acute organ dysfunction status: without acute organ dysfunction Sepsis type: sepsis due to unspecified organism Qualified Code(s): A41.9 - Sepsis, unspecified organism <Allyn Santiago JENNIFERAntonioC - Last Filed: 02/11/20 18:13> Code(s): A41.9 - Sepsis, unspecified organism <Allyn Santiago JENNIFERAntonioC - Last Filed: 02/11/20 18:13> Status: Resolved <Allyn Santiago JENNIFERAntonioC - Last Filed: 02/11/20 18:13> Assessment and Plan: Pt met SIRS criteria at admission. Source of sepsis appears to be pulmonary. Lactic acid WNL at admission. Vitals stable today, patient is afebrile, and without leukocytosis. * Continue empiric IV azithromycin and ceftriaxone with plan to switch to oral abx tomorrow. * Blood cultures reveal NGTD <Allyn Santiago JENNIFERCarlton - Last Filed: 02/11/20 18:13> (4) Abnormal liver enzymes: Code(s): R74.8 - Abnormal levels of other serum enzymes <Allyn Guptairis JENNIFERAntonioC - Last Filed: 02/11/20 18:13> Status: Acute <Allyn Santiago JENNIFERAntonioJose - Last Filed: 02/11/20 18:13> Assessment and Plan: On routine CMP pt was found to have elevated LFTs on 02/10/20. AST went from WNL to 250. ALT went from WNL to 261. ALP remained wnl. Today, AST in creased to 328 and ALT increased to 450. ALP remained wnl. Total bili wnl at 0.7. Patient denies abdominal pain, N/V. He does not appear jaundiced. AST and ALT elevation in presence of normal ALP suggest intrinsic hepatic etiology. - Discontinue simvastatin - Discuss
--- NOTE | 2020-02-11 17:38 | PM.IMPN ---
Progress Note: A&P Assessment and Plan (1) Community acquired pneumonia: Qualifiers: Laterality: unspecified laterality Qualified Code(s): J18.9 - Pneumonia, unspecified organism <Allyn VegaCate Santiago, PA-C - Last Filed: 02/11/20 18:13> Code(s): J18.9 - Pneumonia, unspecified organism <Allynmel Guptaac, PA-C - Last Filed: 02/11/20 18:13> Status: Acute <Allyn Larry Stimac, PA-C - Last Filed: 02/11/20 18:13> Assessment and Plan: The pt is feeling much better today, mobilizing secretions, and lungs are fairly clear. Continue bronchodilators PRN Continue guaifenesin Continue oxygen supplementation PRN to maintain pulse ox >94% Blood cultures with NGTD. Final sputum cultures with mixed bacterial peewee from the lower respiratory tract. Urine pneumococcal pending. Urine legionella antigen not detected. Dr. Dunham has been consulted, pulmonology recommendations are greatly appreciated - continue empiric IV antibiotics azithromycin and ceftriaxone (initiated 01/09) while inpatient and switch to PO levaquin tomororw to complete a total of 7-10 days of abx. Follow-up CXR in 5-6 weeks to ensure radiographic resolution of PNA. Consider immunotherapy induced pneumonitis if pt relapses after the appropriate course of abx. <Allyn Santiago, PA-C - Last Filed: 02/11/20 18:13> (2) Squamous cell carcinoma of left lung: Code(s): C34.92 - Malignant neoplasm of unspecified part of left bronchus or lung <Allynmel Santiago, PA-C - Last Filed: 02/11/20 18:13> Status: Acute <Allyn Larry Stimac, PA-C - Last Filed: 02/11/20 18:13> Assessment and Plan: Dr. Pride is on board. Recommendations greatly appreciated He is on maintenance treatment with keytruda and will continue treatments on a [address] Pride Pt was initially scheduled for thoracentesis outpatient but there is no need for thoracentesis at this time as effusion is small per Dr. Pride <Allyn Santiago, PA-C - Last Filed: 02/11/20 18:13> (3) Sepsis: Qualifiers: Sepsis acute organ dysfunction status: without acute organ dysfunction Sepsis type: sepsis due to unspecified organism Qualified Code(s): A41.9 - Sepsis, unspecified organism <JENNIFER Moreno-C - Last Filed: 02/11/20 18:13> Code(s): A41.9 - Sepsis, unspecified organism <Allyn Santiago PA-C - Last Filed: 02/11/20 18:13> Status: Resolved <Allyn Santiago PA-C - Last Filed: 02/11/20 18:13> Assessment and Plan: Pt met SIRS criteria at admission. Source of sepsis appears to be pulmonary. Lactic acid WNL at admission. Vitals stable today, patient is afebrile, and without leukocytosis. Continue empiric IV azithromycin and ceftriaxone with plan to switch to oral abx tomorrow. Blood cultures reveal NGTD <JENNIFER Moreno-C - Last Filed: 02/11/20 18:13> (4) Abnormal liver enzymes: Code(s): R74.8 - Abnormal levels of other serum enzymes <Allyn Santiago, JENNIFER-C - Last Filed: 02/11/20 18:13> Status: Acute <JENNIFER Moreno-C - Last Filed: 02/11/20 18:13> Assessment and Plan: On routine CMP pt was found to have elevated LFTs on 02/10/20. AST went from WNL to 250. ALT went from WNL to 261. ALP remained wnl. Today, AST increased to 328 and ALT increased to 450. ALP remained wnl. Total bili wnl at 0.7. Patient denies abdominal pain, N/V. He does not appear jaundiced. AST and ALT elevation in presence of normal ALP suggest intrinsic hepatic etiology. - Discontinue simvastatin - Discussed with Dr. Arnold and Dr. Pride. RUQ US obtained. Edited to note: RUQ US revealed cholelithiasis with gallbladder wall thickening and RUQ ascites which could reflect acute cholecystitis. HIDA scan was recommended. Will order HIDA Discussed with general surgeon Dr. Martinez, who agrees with HIDA. Based on results, will consider surgery or o
[2020-02-11] MEDS: ONDANSETRON INJ 4 MG/2 ML VIAL IV PUSH (19:39)
[2020-02-11] MEDS: ALPRAZOLAM 0.5 MG TABLET 1 MG PO (21:38)
[2020-02-11] MEDS: ASPIRIN 81 MG CHEWABLE TABLET PO (21:38)
[2020-02-11] MEDS: CLOPIDOGREL BISULFATE 75 MG TABLET PO (21:38)
[2020-02-11] MEDS: ZOLPIDEM TARTRATE 5 MG TABLET 10 MG PO (21:38)
[2020-02-12] VITALS (8 sets, daily range): BP systolic 95–131; BP diastolic 56–80; PULSE 83–92; RESP 16–20; TEMP 36.5–37; O2SAT 92–96
[2020-02-12] MEDS: CENTRAL LINE FLUSH 10 ML IV PUSH ×2 (05:21→13:11)
[2020-02-12] MEDS: CENTRAL LINE FLUSH 20 ML IV PUSH (05:21)
[2020-02-12 05:59] LABS: Alanine Aminotransferase 388 U/L (4-50); Albumin Level 2.8 g/dL (3.5-5.1); Alkaline Phosphatase 125 U/L (38-126); Aspartate Amino Transferase 174 U/L (17-59); Bilirubin,Total 0.4 mg/dL (0.2-1.3); Blood Urea Nitrogen 42 mg/dL (9-20); Calcium 8.4 mg/dL (8.4-10.2); Carbon Dioxide 30 mmol/L (22-30); Chloride 95 mmol/L (98-107); Cholesterol 100 mg/dL (0-200); Estimated CRCL calculation 42 ml/min; Estimated Glomerular Filt Rate 54; Glucose 84 mg/dL (75-110); HDL Direct 37 mg/dL; Potassium 3.5 mmol/L (3.4-5.0); Sodium 130 mmol/L (137-145); Triglycerides 64 mg/dL (<150)
[2020-02-12 06:05] LABS: Basophils Percent Auto 0.2 % (0.2-1.2); Eosinophils Absolute Auto 0.1 K/mm3 (0-0.3); Eosinophils Percent Auto 1.8 % (0-4.4); Hematocrit 32.7 % (42.0-52.0); Hemoglobin 10.5 g/dL (14.0-18.0); Immature Granulocyte Absolute 0.04 K/mm3 (0.00-0.031); Immature Granulocyte Percent A 0.7 % (0-0.5); Lymphocytes Absolute Auto 0.68 K/mm3 (0.9-3.2); Lymphocytes Percent Auto 12.2 % (18.3-44.2); Mean Corpuscular HGB Conc 32.1 g/dl (32-36); Mean Corpuscular Hemoglobin 30.6 pg (26-34); Mean Corpuscular Volume 95.3 fl (80-100); Monocytes Absolute Auto 0.6 K/mm3 (0.1-0.6); Monocytes Percent Auto 10.6 % (2.6-8.5); Neutrophils Absolute Auto 4.2 K/mm3 (1.3-6.7); Neutrophils Percent Auto 74.5 % (45.5-73.1); Platelet Count Result 122 k/mm3 (150-375); Red Blood Count 3.43 M/mm3 (4.6-6.20); Red Cell Distribution Width 13.4 % (11.5-14.5); White Blood Count 5.6 K/mm3 (4.5-10.0)
[2020-02-12 06:10] LABS: LDL Cholesterol Direct 48 mg/dL
[2020-02-12] MEDS: FLUTICASONE PROP 110 MCG INHALER 12 GM (*SP) 1 PUFF INHALATION (09:08)
--- NOTE | 2020-02-12 09:12 | PM.IMPN ---
Progress Note: A&P Assessment and Plan (1) Community acquired pneumonia: Qualifiers: Laterality: unspecified laterality Qualified Code(s): J18.9 - Pneumonia, unspecified organism <Allyn Santiago PA-C - Last Filed: 02/12/20 10:31> Code(s): J18.9 - Pneumonia, unspecified organism <Allyn Santiago PA-C - Last Filed: 02/12/20 10:31> Status: Acute <Allynmel Santiago PA-C - Last Filed: 02/12/20 10:31> Assessment and Plan: Patient breathing without difficulty. Denies cough. He is afebrile and WBC is 5.6. He is 92% on room air. CXR performed on 02/09 revealed stable or mild improvements of bilateral lower lung infiltrates. Blood cultures reveal NGTD. Sputum cultures reveal mixed bacterial peewee of lower respiratory tract. Urine legionella antigen not detected. Urine pneumococcal antigen still pending. Pulmonology has been following the patient and their recommendations have been greatly appreciated. - Continue bronchodilators PRN - Continue guaifenesin - Continue oxygen supplementation PRN to maintain pulse ox >92%. - Discontinue IV Azithromycin and IV Ceftriaxone. Patient completed 5 days of IV antibiotic therapy. - Begin PO Cefdinir. Pt is not a candidate for Levaquin due to prolonged QTc. Cefdinir start date is 02/11 and will complete 5 days. Stop date will be 02/17/20 after 10 doses. - Per Dr. Dunham and Dr. Ramachandran, he should follow up CXR in 5-6 weeks (approx. March 18) to ensure resolution of pneumonia. Due to his chemotherapy treatments, he is at risk for immunotherapy induced pneumonitis and should be monitored closely in the event of relapse after appropriate antibiotic therapy. <Allyn Santiago PA-C - Last Filed: 02/12/20 10:31> (2) Squamous cell carcinoma of left lung: Code(s): C34.92 - Malignant neoplasm of unspecified part of left bronchus or lung <Allyn Santiago PA-C - Last Filed: 02/12/20 10:31> Status: Acute <Allyn Santiago PA-C - Last Filed: 02/12/20 10:31> Assessment and Plan: Patient has metastatic non-small cell squamous cell carcinoma. Diagnosed in April of 2019 and treated with chemotherapy per oncologist Dr. Pride. He is currently undergoing maintenance chemotherapy treatment with Keytruda. Dr. Pride has been following the patient closely. - Continue maintenance Keytruda every 3 weeks as an outpatient with Dr. Pride. - Monitor for risk of immunotherapy induced pneumonitis. <Allyn VegaCate Jack PA-C - Last Filed: 02/12/20 10:31> (3) Sepsis: Qualifiers: Sepsis acute organ dysfunction status: without acute organ dysfunction Sepsis type: sepsis due to unspecified organism Qualified Code(s): A41.9 - Sepsis, unspecified organism <Allynmel Santiago, PA-C - Last Filed: 02/12/20 10:31> Code(s): A41.9 - Sepsis, unspecified organism <Allynmel Santiago, PA-C - Last Filed: 02/12/20 10:31> Status: Resolved <Allynmel Santiago, PA-C - Last Filed: 02/12/20 10:31> Assessment and Plan: Pt met SIRS criteria at admission. Source of sepsis suspected to be pulmonary. Lactic acid WNL at admission. Sepsis has resolved and vitals stable today, patient is afebrile, and without leukocytosis. Blood cultures reveal NGTD. - Discontinue IV antibiotics <Allyn VegaCate Jack, PA-C - Last Filed: 02/12/20 10:31> (4) Abnormal liver enzymes: Code(s): R74.8 - Abnormal levels of other serum enzymes <Allyn JCate Jack, PA-C - Last Filed: 02/12/20 10:31> Status: Acute <Allyn JCate Guptaac, PA-C - Last Filed: 02/12/20 10:31> Assessment and Plan: On routine CMP pt was found to have acutely elevated LFTs on 02/10/20. 02/09/20: AST, ALT, and ALP within normal limits. 02/09 and 02/10 AST and ALT continued to increase with highest levels AST 328 and ALT 450. ALP remained wnl. Today, still elevated but decreased to AST 174 and ALT 388. Total bili wnl at 0.4. Platelets
--- NOTE | 2020-02-12 09:35 | ECG_ITS ---
Measurements Intervals [place] Rate: 88 P: 85 MA: 195 QRS: -80 QRSD: 172 T: 91 QT: 457 QTc: 554 Interpretive Statements SINUS RHYTHM LEFT AXIS DEVIATION LEFT BUNDLE BRANCH BLOCK ABNORMAL ECG Electronically Signed On 02-12-2020 10:34:23 CDT by Ramses Rodriguez D.O.
--- NOTE | 2020-02-12 09:59 | PM.PNPUL ---
Progress Note: A&P Assessment and Plan (1) COPD (chronic obstructive pulmonary disease): Qualifiers: COPD type: unspecified COPD Qualified Code(s): J44.9 - Chronic obstructive pulmonary disease, unspecified Code(s): J44.9 - Chronic obstructive pulmonary disease, unspecified Status: Chronic Assessment and Plan: Continue Flovent BID SYLVIA and Xopenex PRN TID and ipratropium PRN QID. Can resume home nebulizer regimen on d/c: budesonide 0.5mg/2ml BID, levalbuterol PRN TID, ipratropium PRN QID Continue Daliresp 500mcg daily. Maintain oxygen sats >90%. (2) Community acquired pneumonia: Qualifiers: Laterality: unspecified laterality Qualified Code(s): J18.9 - Pneumonia, unspecified organism Code(s): J18.9 - Pneumonia, unspecified organism Status: Acute Assessment and Plan: Sputum showing mixed bacterial [place] of lower respiratory tract. Preliminary blood cultures no growth. Urine legionella antigen not detected. Urine pneumococcal antigen pending. Recommend switch to oral levaquin to complete 7-10 days of antibiotics upon discharge. Follow up CXR in 5-6 weeks to look for resolution of pneumonia. He is at risk for Immunotherapy induced pneumonitis and would consider this diagnosis if he has a relapse after appropriate course of antibiotics. (3) Squamous cell carcinoma of left lung: Code(s): C34.92 - Malignant neoplasm of unspecified part of left bronchus or lung Status: Acute Assessment and Plan: Dr. Shannen escudero, on maintenance treatment with Keytruda outpatient. Subjective Date/time seen: 02/12/20 09:45 Patient reports he is doing well with his breathing. He is resting on the couch. States he is getting testing done today in regards to his abnormal LFTs. Had an anxiety episode earlier this morning, feeling better now. Denies nausea. Reports occasional cough. Review of Systems Review of Systems: All systems reviewed & are unremarkable except as noted in HPI and below Exam Const: General: comfortable, no acute distress, alert and awake HENMT: Mouth: Yes moist mucous membranes Neck: Neck: supple and no JVD Resp: Effort & Inspection: normal respiratory effort and able to speak in complete sentences Auscultation: diminished lung sounds Cardio: Rate: regular rate Rhythm: regular rhythm GI: Auscultation: normal bowel sounds Skin: General skin exam: normal color and no rashes or lesions noted Extrem: General: normal to inspection Psych: Affect: normal affect Objective Data Vital Signs Vital Signs: Vital Signs - 24 hr 02/11/20 12:37 02/11/20 14:00 02/11/20 17:36 Temperature 36.3 C L Pulse Rate 94 93 94 Respiratory Rate 18 Blood Pressure 96/56 L Pulse Oximetry 96 02/11/20 19:36 02/11/20 20:23 02/12/20 05:21 Temperature 36.1 C L 36.5 C Pulse Rate 110 H 83 Respiratory Rate 22 H 16 Blood Pressure 113/58 L 95/56 L Pulse Oximetry 100 99 92 02/12/20 08:19 Temperature Pulse Rate 88 Respiratory Rate 16 Blood Pressure Pulse Oximetry 95 Intake/Output Intake/Output: Intake & Output 02/09/20 02/10/20 02/11/20 02/12/20 23:59 23:59 23:59 23:59 Intake Total 1920 3960 1010 250 Output Total 1600 Balance 1920 2360 1010 250 Meds/Results Medications: Active Medications Generic Name Dose Route Start Last Admin Trade Name Freq PRN Reason Stop Dose Admin Acetaminophen 650 mg 02/07/20 20:16 Tylenol Tablet PO Q4H PRN Headache Hydrocodone Bitart/Acetaminophen 1 tab 02/07/20 20:16 [place] 5-325 Mg PO Q4H PRN Pain Rated 4-6 Alprazolam 1 mg 02/08/20 03:10 02/11/20 21:38 Xanax PO 1 mg TID PRN Administration Anxiety Aspirin 81 mg 02/08/20 03:25 02/11/20 21:38 Aspirin Chewable PO 81 mg HS SYLVIA Administration Cefdinir 300 mg 02/12/20 09:40 Omnicef PO 02/17/20 09:41 Q12HR SYLVIA Clopidogrel Bisulfate 75 mg 02/08/20 03:25 02/11/20 2
--- NOTE | 2020-02-12 11:18 | PCOTNOTE ---
Attempted to see patient this am, however patient off floor for testing at this time.
[2020-02-12] MEDS: MEXILETINE HCL 150 MG CAPSULE PO ×2 (13:07→17:37)
[2020-02-12] MEDS: GABAPENTIN 300 MG CAPSULE PO ×2 (13:08→17:38)
[2020-02-12] MEDS: CEFDINIR 300 MG CAPSULE PO (13:08)
[2020-02-12] MEDS: FERROUS SULFATE 324 MG TABLET PO ×2 (13:09→17:37)
[2020-02-12] MEDS: DOCUSATE SODIUM 100 MG CAPSULE PO (13:09)
[2020-02-12] MEDS: FUROSEMIDE 20 MG TABLET PO (13:10)
--- NOTE | 2020-02-12 16:38 | PM.DS ---
DS: Diagnosis Admitting Diagnosis Admitting Diagnosis: Pneumonia, unspecified organism Discharge Diagnosis (1) Community acquired pneumonia: Qualifiers: Laterality: unspecified laterality Qualified Code(s): J18.9 - Pneumonia, unspecified organism Code(s): J18.9 - Pneumonia, unspecified organism Status: Acute (2) Squamous cell carcinoma of left lung: Code(s): C34.92 - Malignant neoplasm of unspecified part of left bronchus or lung Status: Acute (3) Sepsis: Qualifiers: Sepsis acute organ dysfunction status: without acute organ dysfunction Sepsis type: sepsis due to unspecified organism Qualified Code(s): A41.9 - Sepsis, unspecified organism Code(s): A41.9 - Sepsis, unspecified organism Status: Resolved (4) Cholecystitis, unspecified: Code(s): K81.9 - Cholecystitis, unspecified Status: Acute (5) Abnormal liver enzymes: Code(s): R74.8 - Abnormal levels of other serum enzymes Status: Acute (6) Normocytic anemia: Code(s): D64.9 - Anemia, unspecified Status: Chronic (7) COPD (chronic obstructive pulmonary disease): Qualifiers: COPD type: unspecified COPD Qualified Code(s): J44.9 - Chronic obstructive pulmonary disease, unspecified Code(s): J44.9 - Chronic obstructive pulmonary disease, unspecified Status: Chronic (8) CAD (coronary artery disease): Qualifiers: Associated angina: without angina Coronary Disease-Associated Artery/Lesion type: [place] artery [place] vs. transplanted heart: [place] heart Qualified Code(s): I25.10 - Atherosclerotic heart disease of [place] coronary artery without angina pectoris Code(s): I25.10 - Atherosclerotic heart disease of [place] coronary artery without angina pectoris Status: Chronic (9) Hyperlipidemia: Qualifiers: Hyperlipidemia type: unspecified Qualified Code(s): E78.5 - Hyperlipidemia, unspecified Code(s): E78.5 - Hyperlipidemia, unspecified Status: Chronic (10) Congestive heart failure: Code(s): I50.9 - Heart failure, unspecified Status: Chronic (11) Protein calorie malnutrition: Code(s): E46 - Unspecified protein-calorie malnutrition Status: Acute (12) Hypertension: Code(s): I10 - Essential (primary) hypertension Status: Chronic Assessment and Plan: DS: Summary Hospital Course Reason for hospitalization: Shortness of breath/dyspnea Hospital Course: Mr. Shah is a pleasant 74 year old male with a known history of metastatic squamous cell carcinoma of lung managed by Dr. Pride, CAD, COPD, anxiety, HLD, and BOB who presented to the emergency department on 02/07/2020 with shortness of breath. He was experiencing cough with increased sputum production. He was found to have pneumonia, which was evident on chest x-ray. He did meet SIRS criteria at admission, but he remained afebrile. He had mild leukocytosis at presentation which resolved. He was treated with IV ceftriaxone and IV azithromycin for a total of 5 days. His cough resolved and chest x-ray displayed improvement. He was followed closely by pulmonology and treated with bronchodilators and supportive therapy. He was discharged with a 5 day course of oral cefdinir and instructed to obtain repeat chest x-ray in 5 weeks to ensure resolution. It is worth noting that he is at risk for immunotherapy induced pneumonitis and should be monitored closely in the event of relapse after appropriate antibiotic therapy. His COPD was treated with his current home regimen. He was started on nasal cannula oxygen supplementation but was able to transition to room air, and oxygen saturation stayed above 91%. Dr. Pride followed the patient for his lung cancer. He will continue his maintenance therapy with Keytruda on an outpatient basis and will keep his regular appointments with Dr. Pride. He was noted to have elevated li
[2020-02-12] MEDS: HEPARIN SOD FLUSH 500 UNITS/5 ML SYRINGE IV PUSH (17:37)
[2020-02-12 19:09] LABS: Pneumococcal Antigen Urine Not Detected (Not Detected)
--- NOTE | 2020-02-14 14:36 | PC.NURSE ---
Pneumococcal Ag- negative. Dr. Catalina velazquez.
== END 2020-02-12 18:15 | disposition home health service (06) | DRG 871 ==
LOC: ANHED 20:14 → ANH3MED 21:09
PROVIDERS: Physician Assistant; Admitting Provider Family Medicine; Emergency Provider Emergency Medicine; PCP Internal Medicine; Visit Provider Physician Assistant
DX: A41.9 Sepsis, unspecified organism (principal); J18.9 Pneumonia, unspecified organism; C34.91 Malignant neoplasm of unspecified part of right bronchus or lung; C78.02 Secondary malignant neoplasm of left lung; I50.22 Chronic systolic (congestive) heart failure; E46 Unspecified protein-calorie malnutrition; J44.9 Chronic obstructive pulmonary disease, unspecified; F41.9 Anxiety disorder, unspecified; M19.90 Unspecified osteoarthritis, unspecified site; I25.10 Atherosclerotic heart disease of native coronary artery without angina pectoris; E78.5 Hyperlipidemia, unspecified; K58.9 Irritable bowel syndrome, unspecified; Z87.442 Personal history of urinary calculi; Z98.49 Cataract extraction status, unspecified eye; Z95.5 Presence of coronary angioplasty implant and graft; Z87.891 Personal history of nicotine dependence; D64.81 Anemia due to antineoplastic chemotherapy; T45.1X5A Adverse effect of antineoplastic and immunosuppressive drugs, initial encounter; I50.9 Heart failure, unspecified; Z92.21 Personal history of antineoplastic chemotherapy; Z79.82 Long term (current) use of aspirin; Z79.02 Long term (current) use of antithrombotics/antiplatelets; D63.0 Anemia in neoplastic disease; Z95.810 Presence of automatic (implantable) cardiac defibrillator; Z68.21 Body mass index [BMI] 21.0-21.9, adult; I11.0 Hypertensive heart disease with heart failure; G47.33 Obstructive sleep apnea (adult) (pediatric)
CPT/HCPCS: 36415; 71046; 76705; 78227; 80048; 80053; 80061; 81003; 83605; 83735; 83880; 85025; 85610; 85730; 87040; 87070; 87205; 87449; 87804; 87899; 93005; 94640; 96365; 96367; 96375; 96376; 97110; 97116; 97161; 97165; 97535; 99285; A9270; A9537; G0378; J0456; J0696; J1940; J2405; J2805; J7030

== ENCOUNTER 2020-02-16 21:30 | Inpatient (IN) | payer MEDICARE, BC, SELFPAY ==
[2020-02-16] VITALS (11 sets, daily range): BP systolic 102–116; BP diastolic 67–87; PULSE 97–106; RESP 24–31; TEMP 36.6; O2SAT 95–97
--- NOTE | ~2020-02-16 | US_ITS ---
EXAMINATION: US thoracentesis DATE: 02/19/2020 11:57 INDICATION: Right pleural effusion TECHNIQUE: The procedure and its risks and benefits were discussed with the patient. Potential risks discussed included bleeding, infection, and pneumothorax. The patient understood the risks and agreed to proceed. The skin was prepped and draped in sterile fashion. 1% lidocaine was used for local anes thesia. Under ultrasound guidance, a 5 Fr catheter with trochar was advanced into the right pleural e ffusion. Fluid was aspirated. The catheter was removed, and a dressing was applied. There were no imm ediate complications. FINDINGS: Ultrasound images demonstrate a right pleural effusion and the catheter within the fluid. IMPRESSION: 1. Successful ultrasound-guided thoracentesis yielding 1000 mL of yellowish fluid. Reviewed, dictated and finalized at location A. IMPRESSION: 1. Successful ultrasound-guided thoracentesis yielding 1000 mL of yellowish fl uid.
--- NOTE | ~2020-02-16 | XR_ITS ---
EXAMINATION: XR chest 2V DATE: 02/19/2020 11:52 INDICATION: Pleural effusion postthoracentesis TECHNIQUE: frontal and lateral views of the chest were obtained. COMPARISON: Chest radiograph and CT dated 02/16/2020 FINDINGS: Interval decrease in a now small right pleural effusion postthoracentesis. Smaller left pleural effus ion is slightly increased since the prior study. Opacities in the bilateral lower lung zones which co uld represent associated atelectasis and/or pneumonia. No pneumothorax. Cardiomegaly. Dual lead pacem godwin/AICD seen with leads projecting over the expected locations of the right atrium and right ventri sanaz. Right internal jugular central venous port catheter with distal tip near the superior vena cava. Old healed left clavicle fracture deformity. IMPRESSION: 1. Small bilateral pleural effusions, right greater than left with slight interval increase in size o n the left but significant decrease in size postthoracentesis on the right. 2. Bibasilar opacities which could represent atelectasis and/or pneumonia. 3. Cardiomegaly. Reviewed, dictated and finalized at location A. IMPRESSION: 1. Small bilateral pleural effusions, right greater than left with slight inter sarah increase in size on the left but significant decrease in size postthoracent esis on the right. 2. Bibasilar opacities which could represent atelectasis and/or pneumonia. 3. Cardiomegaly.
--- NOTE | ~2020-02-16 | CT_ITS ---
EXAMINATION: CTA chest PE protocol DATE: 02/16/2020 23:43 INDICATION: Worsening shortness of breath TECHNIQUE: Computed tomography (CT) pulmonary angiogram of the chest was performed with 100 mL Omnipa que-350 intravenous contrast. Additional 3D reconstructions utilizing coronal maximum intensity proje ction (MIP) were performed. Automated exposure control and iterative reconstruction technique were em ployed. The dose-length product was 369.52 mGy-cm. COMPARISON: 01/20/2020 FINDINGS: Excellent contrast opacification of the pulmonary arteries. There is mild streak artifact from dense contrast in the superior vena cava and right atrium. Mild scattered respiratory motion artifact. Over all this only mildly limits evaluation with decreased sensitivity in some of the smaller subsegmental pulmonary arteries. Central pulmonary arterial filling defects and a couple subsegmental branchs in the anterior segment of the right upper lobe consistent with acute pulmonary embolism. No other evide nt pulmonary emboli. Small left and moderate-sized right pleural effusions. Consolidation in the righ t middle and bilateral lower lobes with somewhat patchy configuration in the bilateral lower lobes li rula representing a combination of atelectasis and pneumonia. There is some associated mucus and muco us plugging in the right lower lobar bronchi. Mild emphysema. 2.6 x 1.7 cm spiculated nodule at the l eft apex consistent with a reported known primary bronchogenic carcinoma. Large calcified nodule in t he right lower lobe and small calcified right hilar lymph node consistent with old granulomatous dise ase. Cardiomegaly. No leftward bowing of the ventricular septum to suggest right heart strain. Dual-lead c ardiac pacemaker/AICD with lead tips at the right atrial appendage and at the apex of the right ventr icle. Small to moderate sized pericardial effusion. Right internal jugular central venous port cathet er with distal tip at the superior cavoatrial junction. Atherosclerotic aorta is normal in caliber wi th no dissection. Unchanged mild mediastinal and right hilar lymphadenopathy which could be either re active or metastatic. 2.8 cm left renal cyst. Small amount of ascites in the upper abdomen. Chronic c ompression fractures at T12 and a transitional bilateral rib-bearing L1 segment. IMPRESSION: 1. Pulmonary embolism with low clot burden in a couple anterior subsegmental pulmonary arteries of th e right upper lobe. According to documentation in report provided by [facility] radiology, Dr. Jose Luis Hernandez ra discussed these findings with emergency room Dr. Whitehead at 12:05 AM. 2. Worsening patchy airspace disease in the bilateral lower lobes and consolidation in the right midd le lobe likely combination of atelectasis and/or pneumonia. 3. Moderate right and small left pleural effusions. 4. 2.6 x 1.7 cm spiculated left apical nodule consistent with a reported known primary lung cancer. 5. Emphysema. 6. Cardiomegaly and small to moderate pericardial effusion. 7. Small amount of ascites in the upper abdomen. Reviewed, dictated and finalized at location A. IMPRESSION: 1. Pulmonary embolism with low clot burden in a couple anterior subsegmental pu lmonary arteries of the right upper lobe. According to documentation in report provided by [facility], Dr. Jose Luis Kingston discussed these findings with em ergency room Dr. Whitehead at 12:05 AM. 2. Worsening patchy airspace disease in the bilateral lower lobes and consolida tion in the right middle lobe likely combination of atelectasis and/or pneumoni a. 3. Moderate right and small left pleural effusions. 4. 2.6 x 1.7 cm spiculated left apical nodule consistent with a reported known primary lung cancer. 5. Emphysema. 6. Cardiomegaly and small to moderate
--- NOTE | ~2020-02-16 | US_ITS ---
EXAMINATION: US venous doppler [facility] DATE: 02/18/2020 09:13 INDICATION: Shortness of breath TECHNIQUE: Byrd scale images without and with compression and Doppler images of the bilateral lower e xtremity veins were obtained. COMPARISON: None. FINDINGS: The right common femoral vein, profunda femoral vein, femoral vein, popliteal vein, peroneal trunk, p osterior tibial veins, and greater saphenous vein are patent. The left common femoral vein, profunda femoral vein, femoral vein, popliteal vein, peroneal trunk, po sterior tibial veins, and greater saphenous vein are patent. IMPRESSION: 1. Patent bilateral lower extremity veins. No evidence of deep venous thrombosis. Reviewed, dictated and finalized at location B. IMPRESSION: 1. Patent bilateral lower extremity veins. No evidence of deep venous thrombosi s.
--- NOTE | ~2020-02-16 | XR_ITS ---
EXAMINATION: XR chest 2V DATE: 02/16/2020 22:23 INDICATION: Shortness of breath TECHNIQUE: frontal and lateral views of the chest were obtained. COMPARISON: Chest radiograph dated 02/10/[address] dated 02/16/2020 FINDINGS: Hyperexpansion of lungs secondary to emphysema. Small bilateral pleural effusions, right greater than left. Superimposed patchy airspace opacities right mid to lower and left lower lung zone consistent with atelectasis/pneumonia. No pneumothorax. Enlarged cardiac silhouette which on CT corresponds to b oth cardiomegaly and moderate pericardial effusion. Dual lead pacemaker/AICD seen with leads projecti ng over the expected locations of the right atrium and right ventricle. Right internal jugular centra l venous port catheter with distal tip at the caudal superior vena cava. Malunited old left clavicle fracture. IMPRESSION: 1. Opacities in the right mid to lower and left lower lung zones most likely combination of atelectas is and pneumonia. 2. Small bilateral pleural effusions, right greater than left. 3. Emphysema. 4. Enlarged cardiac silhouette corresponding to cardiomegaly and pericardial effusion. Reviewed, dictated and finalized at location A. IMPRESSION: 1. Opacities in the right mid to lower and left lower lung zones most likely co mbination of atelectasis and pneumonia. 2. Small bilateral pleural effusions, right greater than left. 3. Emphysema. 4. Enlarged cardiac silhouette corresponding to cardiomegaly and pericardial ef fusion.
--- NOTE | 2020-02-16 21:31 | ED.SOB ---
HPI - SOB/Dyspnea General Chief Complaint: Shortness of Breath/Dyspnea Stated Complaint: SOB Time Seen by Provider: 02/16/20 21:31 Source: patient and RN notes reviewed Mode of arrival: EMS Limitations: no limitations History of Present Illness HPI Narrative: Pt is a 74 y/o male who presents to the ED, via EMS from home, with c/o increased SOB that began today. Pt has a hx of stage 4 lung cancer. Pt's spouse states the cancer is mostly in the left lung. Pt was dx in April 2019 with lung cancer and he sees Dr. Pride. He has been doing chemotherapy and immunotherapy. Pt has been doing immunotherapy since September 2019 and has treatments every 3 weeks. Pt's last treatment was on 01/27/20. Pt's spouse states the pt was admitted here at [facility] for 5 days and was d/c 5 days ago (02/11/20). Pt states that he felt better when he was d/c home. Pt was dx with community acquired pneumonia and COPD. Pt was recommended to continue his nebulizer treatments and a 5 day course of Cefdinir. Pt was also recommended to follow up with Dr. Martinez for his gallbladder issue. Pt's spouse states that the pt is not a candidate for surgery at this time. Pt's spouse denies the pt being on home oxygen and using a CPAP or BiPAP machine. Pt's spouse states the pt's oxygen saturation was at 95% when EMS arrived and he was placed on 5 L of oxygen for comfort measures. Pt states that his nebulizer treatment did not help him today. Pt also reports wheezing more than usual and a cough producing a white phlegm, but denies a fever, chest pain, nausea, vomiting, leg swelling, and dizziness. Pt also denies any recent falls. Pt's oncologist is Dr. Pride. Pt is taking ASA 81 mg daily. MD elicited complaint: shortness of breath Pertinent past history: COPD, asthma and pneumonia Onset (ago): hour(s) Context: recent illness Timing: constant Known history of: COPD, asthma and diabetes Associated symptoms: cough (producing white phlegm) and wheezing (more than usual) Related Data Home Medications Medication Instructions Recorded Confirmed Linzess 290 mcg PO DAILY 09/11/19 02/17/20 albuterol sulfate [ProAir HFA] 2 puff INHALATION QID PRN 09/11/19 02/17/20 alprazolam 1 mg PO TID PRN 09/11/19 02/17/20 aspirin [Aspirin Childrens] 81 mg PO HS 09/11/19 02/17/20 clopidogrel 75 mg PO DAILY 09/11/19 02/17/20 dicyclomine 20 mg PO PRN PRN 09/11/19 02/17/20 furosemide 20 mg PO DAILY 09/11/19 02/17/20 simvastatin 20 mg PO HS 09/11/19 02/17/20 ferrous sulfate [Iron (ferrous 325 mg PO BID 10/03/19 02/17/20 sulfate)] gabapentin 300 mg PO TID 10/03/19 02/17/20 guaifenesin 600 mg tablet, 600 mg PO Q12H PRN 01/20/20 02/17/20 extended release 12 hr ipratropium bromide 0.02 % 2.5 ml INHALATION QID PRN 01/20/20 02/17/20 solution for inhalation mexiletine 150 mg capsule 150 mg PO TID cap 01/20/20 02/17/20 ondansetron 4 mg disintegrating 4 mg PO Q8H PRN 01/20/20 02/17/20 tablet zolpidem 10 mg PO HS PRN 02/07/20 02/17/20 Flovent HFA 1 puff INHALATION Q12H 02/08/20 02/17/20 potassium chloride [Klor-Con M20] 20 meq PO DAILY 02/08/20 02/17/20 amitriptyline 25 mg PO HS 02/10/20 02/17/20 megestrol 800 mg PO HS 02/10/20 02/17/20 Allergies Allergy/AdvReac Type Severity Reaction Status Date / Time hydromorphone AdvReac Severe Hallucinati Verified 02/17/20 00:26 ng morphine AdvReac Severe Nausea and Verified 02/17/20 00:26 Vomiting Review of Systems Review of Systems: All systems reviewed & are unremarkable except as noted in HPI and below Constitutional: Constitutional: Denies fever(s) Cardiovascular: Cardiovascular: Denies chest pain and Denies leg edema Respiratory: Respiratory: Reports cough (producing white phlegm), Reports dyspnea (increased) and Reports wheezing (more than usual) Gastrointestinal: Gastrointestinal: Denies nausea and Denies vomiting Neurologic: Denies dizziness PMFSH Past Medical History Medical History (Updated 02/17/20 @ 04:28 by Opal Whiteheda
--- NOTE | 2020-02-16 21:39 | ECG_ITS ---
Measurements Intervals [place] Rate: 103 P: 95 MO: 176 QRS: -58 QRSD: 150 T: 83 QT: 396 QTc: 519 Interpretive Statements SINUS TACHYCARDIA ATRIAL AND VENTRICULAR PREMATURE COMPLEXES LEFT AXIS DEVIATION LEFT BUNDLE BRANCH BLOCK ABNORMAL ECG Electronically Signed On 02-17-2020 7:18:13 CDT by Ramses Rodriguez D.O.
[2020-02-16 21:54] LABS: Alveolar/Arterial O2 Gradient 33.7 mmHg; Base Excess ABG 3.1 mEq/l (+/-2.0); Fractional Inspired Oxygen 24 %; HCO3 ABG 27.1 mEq/l (22.0-26.0); Methemoglobin ABG 0.3 %THb (0-1.5); Oxygen Content ABG 18.2 %vol (16.0-22.0); Oxygen Saturation ABG 97.3 % (95.0-100.0); Oxyhemoglobin 95.6 % THb (90.0-100.0); PCO2 ABG 39.2 mmHg (35.0-45.0); PO2 ABG 90.8 mmHg (80.0-100.0); PO2 FiO2 Ratio Arterial Blood 3.78 %; Reduced Hemoglobin 3.1 %THb (0-5.0); Total Hemoglobin 13.5 g/dL (12.0-18.0); pH ABG 7.457 (7.350-7.450)
[2020-02-16 21:56] LABS: Device NASAL CANNULA; Modified Allen's Test Pass; Site Drawn LEFT RADIAL
[2020-02-16] MEDS: IPRATROPIUM BR 0.02% INH SOLN 0.5 MG/2.5 ML VIAL INHALATION (22:00)
[2020-02-16] MEDS: ALBUTEROL SULFATE NEB 2.5 MG/0.5 ML INH 5 MG INHALATION (22:00)
[2020-02-16 22:16] LABS: Basophils Percent Auto 0.4 % (0.2-1.2); Eosinophils Absolute Auto 0.3 K/mm3 (0-0.3); Eosinophils Percent Auto 4.4 % (0-4.4); Hematocrit 38.6 % (42.0-52.0); Hemoglobin 12.2 g/dL (14.0-18.0); Immature Granulocyte Absolute 0.09 K/mm3 (0.00-0.031); Immature Granulocyte Percent A 1.2 % (0-0.5); Lymphocytes Absolute Auto 0.69 K/mm3 (0.9-3.2); Lymphocytes Percent Auto 9.5 % (18.3-44.2); Mean Corpuscular HGB Conc 31.6 g/dl (32-36); Mean Corpuscular Hemoglobin 30.7 pg (26-34); Mean Platelet Volume 10.1 fl (7.4-10.4); Monocytes Absolute Auto 0.6 K/mm3 (0.1-0.6); Monocytes Percent Auto 8.2 % (2.6-8.5); Neutrophils Absolute Auto 5.6 K/mm3 (1.3-6.7); Neutrophils Percent Auto 76.3 % (45.5-73.1); Platelet Count Result 245 k/mm3 (150-375); Red Blood Count 3.98 M/mm3 (4.6-6.20); Red Cell Distribution Width 14.5 % (11.5-14.5); White Blood Count 7.3 K/mm3 (4.5-10.0)
--- NOTE | 2020-02-16 22:19 | PC.NURSE ---
Patient taken to radiology.
[2020-02-16 22:26] LABS: INR 1.3; Partial Thromboplastin Time 28.1 SECONDS (22.3-36.8); Prothrombin Time 15.5 Seconds (11.1-14.7)
[2020-02-16 22:31] LABS: Alanine Aminotransferase 120 U/L (4-50); Albumin Level 3.2 g/dL (3.5-5.1); Alkaline Phosphatase 87 U/L (38-126); Aspartate Amino Transferase 39 U/L (17-59); Bilirubin,Total 0.5 mg/dL (0.2-1.3); Blood Urea Nitrogen 20 mg/dL (9-20); CRP 3.6 mg/dL (<1.0); Calcium 8.4 mg/dL (8.4-10.2); Carbon Dioxide 31 mmol/L (22-30); Chloride 102 mmol/L (98-107); Estimated Glomerular Filt Rate > 60; Glucose 95 mg/dL (75-110); Potassium 3.6 mmol/L (3.4-5.0); Sodium 138 mmol/L (137-145)
[2020-02-16 22:41] LABS: NT Pro B Type Natriuretic Pept > 35000 PG/ML (5-100)
--- NOTE | 2020-02-16 23:48 | PC.NURSE ---
Pt unable to provide a urine specimen at this time. Patient refusing catheter to obtain specimen.
[2020-02-17] VITALS (23 sets, daily range): BP systolic 91–132; BP diastolic 56–89; PULSE 91–119; RESP 14–25; TEMP 36.3–36.6; O2SAT 88–100; BMI 20.7
[2020-02-17] MEDS: HEPARIN SODIUM 5,000 UNITS/ML VIAL 4800 UNITS IV PUSH (01:19)
[2020-02-17] MEDS: HEPARIN SOD/D5W 100 UNITS/ML 25,000 UNITS/250 ML BAG 11 UNITS IV CONT (02:23)
--- NOTE | 2020-02-17 03:14 | ADMGEN ---
This patient, Marbin Shah Cate, was admitted to [address] [place] [address] Room [facility] AT 0218 02/16. Patient/family oriented to hospital policies and general routines including ID bracelet, bed and alarms, visiting hours, pain management, procedures, bathroom and other care routines, personal items, smoking policy, room service/diet, and visiting hours. Valuables list has been completed. Information on how to activate the Rapid Response Team has been discussed. Patient/Family are encouraged to report perceived risks to care and to ask questions if they do not understand what they are told or what they should do.
[2020-02-17] MEDS: ALPRAZOLAM 0.5 MG TABLET 1 MG PO ×2 (05:52→20:55)
[2020-02-17 06:01] LABS: Add Urine Microscopic? YES; Appearance Urine Clear (Clear); Bacteria Urine Trace /hpf; Bilirubin Urine Negative (Negative); Blood Urine Negative (Negative); Color Urine Yellow (Yellow); Glucose Urine UA Negative (Negative); Ketones Urine Negative (Negative); Leukocyte Esterase Ur Negative LEU/UL (Negative); Mucus Urine Rare /lpf; Nitrate Urine Negative (Negative); Protein Urine 1+ mg/dL (Negative); Specific Grav Ur 1.059 (1.001-1.035); Squamous Epithelial Cell Urine Rare /hpf (Few); Urobilinogen Urine Negative mg/dL (<2.0); WBC Urine 0-3 /hpf
[2020-02-17] MEDS: ONDANSETRON INJ 4 MG/2 ML VIAL IV PUSH (06:08)
[2020-02-17] MEDS: GABAPENTIN 300 MG CAPSULE PO ×3 (08:31→17:38)
[2020-02-17] MEDS: POTASSIUM CHLORIDE 20 MEQ TABLET.ER PO (08:31)
[2020-02-17] MEDS: FUROSEMIDE 20 MG TABLET PO (08:31)
[2020-02-17] MEDS: FERROUS SULFATE 324 MG TABLET PO ×2 (08:31→17:38)
[2020-02-17] MEDS: CLOPIDOGREL BISULFATE 75 MG TABLET PO (08:31)
[2020-02-17 08:32] LABS: Basophils Percent Auto 0.4 % (0.2-1.2); Eosinophils Absolute Auto 0.2 K/mm3 (0-0.3); Eosinophils Percent Auto 3.3 % (0-4.4); Hematocrit 35.6 % (42.0-52.0); Hemoglobin 11.1 g/dL (14.0-18.0); Immature Granulocyte Absolute 0.08 K/mm3 (0.00-0.031); Immature Granulocyte Percent A 1.2 % (0-0.5); Lymphocytes Absolute Auto 0.66 K/mm3 (0.9-3.2); Lymphocytes Percent Auto 9.5 % (18.3-44.2); Mean Corpuscular HGB Conc 31.2 g/dl (32-36); Mean Corpuscular Hemoglobin 30.4 pg (26-34); Mean Corpuscular Volume 97.5 fl (80-100); Mean Platelet Volume 9.5 fl (7.4-10.4); Monocytes Absolute Auto 0.6 K/mm3 (0.1-0.6); Monocytes Percent Auto 8.2 % (2.6-8.5); Neutrophils Absolute Auto 5.4 K/mm3 (1.3-6.7); Neutrophils Percent Auto 77.4 % (45.5-73.1); Platelet Count Result 219 k/mm3 (150-375); Red Blood Count 3.65 M/mm3 (4.6-6.20); Red Cell Distribution Width 14.8 % (11.5-14.5); White Blood Count 6.9 K/mm3 (4.5-10.0)
[2020-02-17] MEDS: MEXILETINE HCL 150 MG CAPSULE PO ×2 (08:32→12:11)
[2020-02-17 08:45] LABS: INR 1.5; Prothrombin Time 17.3 Seconds (11.1-14.7)
[2020-02-17] MEDS: IPRATROPIUM BR 0.02% INH SOLN 0.5 MG/2.5 ML VIAL INHALATION ×3 (08:57→19:58)
[2020-02-17] MEDS: FLUTICASONE PROP 110 MCG INHALER 12 GM (*SP) 1 PUFF INHALATION (08:59)
--- NOTE | 2020-02-17 09:00 | PM.IMHP ---
H&P: HPI History of Present Illness Chief complaint: postobstructive pneumonia,pulmonary embolism <Allyn Santiago PA-C - Last Filed: 02/17/20 17:23> Narrative: Date of service: 02/17/2020 Date of admission: 02/16/2020 Marbin Shah Sr. is a 74 year old male with a PMH significant for metastatic squamous cell lung cancer managed with immunotherapy by Dr. Pride, COPD, CHF, and recent hospitalization from 02/06-02/12/2020 for pneumonia who presented to the ED on 02/15 via EMS for SOB. He reports he was feeling well at discharge and remained well for 4 days, but became very short of breath on 02/15. He tried to fight it, but he just couldn't breathe. The episode occurred upon awakening and did not improve throughout the day, even with use of home inhalers and nebulized breathing treatments. He does not use home oxygen. He felt his breathing was very shallow and reports it worsened with activity. He reports an episode early this morning when he awoke gasping for air and unable to catch his breath, and nursing staff instructed him to slow down his breathing which relieved this episode. He denies feeling anxious. At my visit, he reports his SOB is improved from yesterday and he is able to converse without difficulty. He denies any chest pain and denies cough. He had previously been able to lay flat but yesterday and today he is unable to do so. He denies dizziness or lightheadedness. He feels very weak. He denies abdominal pain, nausea, or vomiting. His last BM was 1 day ago. He is urinating without difficulty. His appetite has been fine, but he reports he does not like the food here and did not eat his breakfast. He reports he did not get any sleep last night as he had not received his ambien. He was admitted to the hospitalist service on 02/16/[address] Arnold as the supervising physician. <Allyn Santiago PA-C - Last Filed: 02/17/20 17:23> Review of Systems Review of Systems: Narrative: A 12 point review of systems was reviewed and unremarkable except as noted in HPI and below Constitutional: weakness, fatigue, no fevers, no dizziness or lightheadedness EENT: no visual disturbances, no difficulty hearing, no rhinorrhea, no dysphagia CV: no chest pain, SOB Respiratory: no cough, no sputum production, no hemoptysis GI: no abdominal pain, no nausea or vomiting, no stool changes : no dysuria, no urgency or frequency, no hematuria Skin: no rashes or lesions MSK: no body aches, no joint pain Neuro: no headache, no memory loss, no confusion Psych: no anxiety or depression Heme: no bleeding or bruising Endocrine: no weight change <Allyn Santiago PA-C - Last Filed: 02/17/20 17:23> [facility] Past Medical History Medical History: Medical History (Updated 02/17/20 @ 17:03 by Allyn Santiago PA-C) AAA (abdominal aortic aneurysm) Anxiety Arthritis Asthma Back pain CAD (coronary artery disease) Cataracts, bilateral COPD (chronic obstructive pulmonary disease) Foot fracture, left Hyperlipidemia Irregular heartbeat Irritable bowel Kidney stones Lung cancer metastatic squamous cell, stage 4, dx in April 2019 Myocardial infarct 2005, 2017 Pacemaker Port-A-Cath in place S/P ORIF (open reduction internal fixation) fracture right knee Shingles Sleep apnea <Allyn Santiago PA-C - Last Filed: 02/17/20 17:23> Surgical History Surgical History: Surgical History H/O cardiac radiofrequency ablation H/O cystoscopy H/O Spinal surgery 1998, 1999 History of AAA (abdominal aortic aneurysm) repair History of cardiac cath History of cataract surgery History of coronary artery stent placement History of orthopedic surgery left foot surgery Hx of CABG <Allyn Santiago PA-C - Last Filed: 02/17/20 17:23> Family History Family History: Family History (Updated 02/17/20 @ 09:37 by Allyn Santiago PA-C) Sibling , 40 Family history of ca
[2020-02-17 09:06] LABS: Partial Thromboplastin Time > 200.0 SECONDS (22.3-36.8)
[2020-02-17 16:58] LABS: INR 1.5; Prothrombin Time 17.5 Seconds (11.1-14.7)
[2020-02-17 17:29] LABS: Partial Thromboplastin Time > 200.0 SECONDS (22.3-36.8)
--- NOTE | 2020-02-17 19:30 | PM.CNPUL ---
Assessment and Plan Assessment and plan (1) Pericardial effusion: Code(s): I31.3 - Pericardial effusion (noninflammatory) Status: Acute Assessment and Plan: THIS IS A NEW FINDING and may be a hemoperidardium, may be the reason for his increased shortness of breath. Echo has been ordered to better evaluate, and decide what the next best step is. (2) Multiple subsegmental pulmonary emboli without acute cor pulmonale: Code(s): I26.94 - Multiple subsegmental pulmonary emboli without acute cor pulmonale Status: Acute Assessment and Plan: noted on chest CT, had been anticoagulated; will stop the current asa an d Plavix to tap the pleural effusion and possibly the pericardial effusion. (3) Pleural effusion: Code(s): J90 - Pleural effusion, not elsewhere classified Status: Acute Assessment and Plan: right side with associated pneumonia (4) COPD (chronic obstructive pulmonary disease): Qualifiers: COPD type: unspecified COPD Qualified Code(s): J44.9 - Chronic obstructive pulmonary disease, unspecified Code(s): J44.9 - Chronic obstructive pulmonary disease, unspecified Status: Chronic Assessment and Plan: on bronchodilator therapy (5) Squamous cell carcinoma of left lung: Code(s): C34.92 - Malignant neoplasm of unspecified part of left bronchus or lung Status: Chronic Assessment and Plan: on immunotherapy, managed by Dr. Pride History of Present Illness History of Present Illness Consult date: 03/18/20 Chief complaint: postobstructive pneumonia,pulmonary embolism Narrative: Thank you for the consult: readmission with increased shortness of breath, right pleural effusion, pericardial effusion Discussed with Ivis Singh PA-C; PLANS: echo to evaluate pericardial effusion; stop Plavix and aspirin for right thoracentesis, continue IV heparin for small PE to the artery to the RUL. This is a small PE and it is not critical that he gets treatment emergently. This 74 yo man was readmitted after being here 02/06-02/12/2020 for pneumonia. After 4 days at home, he now has increased shortness of breath and a new right pleural effusion. He has metastatic squamous cell lung cancer managed with immunotherapy by Dr. Pride, COPD, CHF. He failed inhalers and nebulized bronchodilators. He does not have chest pain, cough or fever. He has orthopnea, which is new, cannot lie flat. CT chest shows: 1. Pulmonary embolism with low clot burden in a couple anterior subsegmental pulmonary arteries of the right upper lobe. According to documentation in report provided by [facility] radiology, Dr. Jose Luis Kingston discussed these findings with emergency room Dr. Whitehead at 12:05 AM. 2. Worsening patchy airspace disease in the bilateral lower lobes and consolidation in the right middle lobe likely combination of atelectasis and/or pneumonia. 3. Moderate right and small left pleural effusions. 4. 2.6 x 1.7 cm spiculated left apical nodule consistent with a reported known primary lung cancer. 5. Emphysema. 6. Cardiomegaly and small to moderate pericardial effusion. 7. Small amount of ascites in the upper abdomen. Review of Systems Review of Systems: All systems reviewed & are unremarkable except as noted in HPI and below PMFSH Past Medical History Medical History (Updated 02/20/20 @ 16:10 by Ivis Singh PA-C) AAA (abdominal aortic aneurysm) Anxiety Arthritis Asthma Back pain CAD (coronary artery disease) Cataracts, bilateral COPD (chronic obstructive pulmonary disease) Foot fracture, left Hyperlipidemia Irregular heartbeat Irritable bowel Kidney stones Lung cancer metastatic squamous cell, stage 4, dx in April 2019 Myocardial infarct 2005, 2017 Pacemaker Port-A-Cath in place S/P ORIF (open reduction internal fixation) fracture right knee Shingles Sleep apnea Surgical History Surgical History (Reviewed 02/17/20 @ 09:36 by CARI Moreno
[2020-02-17 20:12] LABS: Magnesium 1.8 mg/dL (1.6-2.3)
[2020-02-17] MEDS: MEGESTROL ACETATE (*CHEMO) ORAL SUSP 40 MG/ML SYR 800 MG PO (20:54)
[2020-02-17] MEDS: SIMVASTATIN 20 MG TABLET PO (20:56)
[2020-02-17] MEDS: ZOLPIDEM TARTRATE 5 MG TABLET 10 MG PO (20:56)
[2020-02-17] MEDS: AMITRIPTYLINE HCL 25 MG TABLET PO (20:56)
[2020-02-17] MEDS: CENTRAL LINE FLUSH 10 ML IV PUSH (20:57)
[2020-02-18] VITALS (20 sets, daily range): BP systolic 101–109; BP diastolic 56–68; PULSE 87–116; RESP 14–24; TEMP 36.2–36.6; O2SAT 92–100
[2020-02-18 01:07] LABS: INR 1.4; Prothrombin Time 16.8 Seconds (11.1-14.7)
[2020-02-18 01:09] LABS: Partial Thromboplastin Time 94.6 SECONDS (22.3-36.8)
[2020-02-18] MEDS: IPRATROPIUM BR 0.02% INH SOLN 0.5 MG/2.5 ML VIAL INHALATION ×4 (01:53→19:07)
[2020-02-18] MEDS: HEPARIN SOD/D5W 100 UNITS/ML 25,000 UNITS/250 ML BAG 7 UNITS IV CONT (04:58)
[2020-02-18] MEDS: CENTRAL LINE FLUSH 10 ML IV PUSH ×5 (05:02→23:53)
--- NOTE | 2020-02-18 05:39 | PCRCNOTE ---
patient stated that he uses symbicort
[2020-02-18 07:00] LABS: Basophils Percent Auto 0.5 % (0.2-1.2); Eosinophils Absolute Auto 0.2 K/mm3 (0-0.3); Eosinophils Percent Auto 3.2 % (0-4.4); Hematocrit 32.2 % (42.0-52.0); Immature Granulocyte Absolute 0.04 K/mm3 (0.00-0.031); Immature Granulocyte Percent A 0.7 % (0-0.5); Lymphocytes Absolute Auto 0.62 K/mm3 (0.9-3.2); Lymphocytes Percent Auto 11.1 % (18.3-44.2); Mean Corpuscular HGB Conc 31.1 g/dl (32-36); Mean Corpuscular Hemoglobin 30.5 pg (26-34); Mean Corpuscular Volume 98.2 fl (80-100); Mean Platelet Volume 9.5 fl (7.4-10.4); Monocytes Absolute Auto 0.4 K/mm3 (0.1-0.6); Monocytes Percent Auto 7.5 % (2.6-8.5); Neutrophils Absolute Auto 4.3 K/mm3 (1.3-6.7); Platelet Count Result 192 k/mm3 (150-375); Red Blood Count 3.28 M/mm3 (4.6-6.20); Red Cell Distribution Width 14.6 % (11.5-14.5); White Blood Count 5.6 K/mm3 (4.5-10.0)
--- NOTE | 2020-02-18 07:00 | ECHO_ITS ---
Patient Info Name: Marbin Shah Age: 74 years : 1945 Gender: Male Ht: 69 in Wt: 140 lbs BSA: 1.75 m2 HR: 111 bpm BP: 101 / 56 mmHg Technical Quality: Good Exam Date: 02/18/2020 10:29 AM Exam Location[facility] Patient Status: Inpatient Admit Date: 02/17/2020 Staff Ordering Physician: Adela Dunham MD Voucher Clerk: Leodan Aviles RDCS, RT Attending Provider: Ivis Singh PA-C Referring Physician: Charla MARTINEZ; Exam Type: CA echo doppler color flow Study Info Indications I31.3 - Pericardial effusion (noninflammatory) Complete two-dimensional, color flow and Doppler transthoracic echocardiogram is performed. Summary 1. Left ventricular chamber dimension is severely enlarged. 2. Left ventricular systolic function is severely reduced, estimated at 15-20%. 3. The left ventricular diastolic function is abnormal. 4. E/e' 16 is elevated. 5. Global longitudinal strain is abnormal at -3.0%. 6. Linear artifact in right ventricle suggestive of catheter(s), pacemaker lead(s), or ICD lead(s). 7. Left atrial chamber dimension is mildly enlarged. 8. Linear artifact in the right atrium suggestive of catheter(s), pacemaker lead(s), or ICD lead(s). 9. There is moderate mitral valve regurgitation. 10. There is mild to moderate tricuspid valve regurgitation. 11. Moderate pulmonary hypertension, estimated pulmonary arterial systolic pressure is 50 mmHg. 12. Dilated inferior vena cava with <50% collapse upon inspiration consistent with significantly elevated right atrial pressure, 15 mmHg. 13. There is small-moderate circumferential pericardial effusion. More significant pericardial effusion adjacent to right atrium. No evidence of pericardial tamponade. Left Ventricle E/e' 16 is elevated. Global longitudinal strain is abnormal at -3.0%. Left ventricular chamber dimension is severely enlarged. Left ventricular systolic function is severely reduced, estimated at 15-20%. The left ventricular diastolic function is abnormal. Right Ventricle Linear artifact in right ventricle suggestive of catheter(s), pacemaker lead(s), or ICD lead(s). Right ventricular chamber dimension is normal. Right ventricular systolic function is normal. Left Atria Left atrial chamber dimension is mildly enlarged. Right Atria Linear artifact in the right atrium suggestive of catheter(s), pacemaker lead(s), or ICD lead(s). Right atrial chamber dimension is normal. Aortic Valve The aortic valve is trileaflet. There is no aortic valve stenosis. There is no aortic valve regurgitation. Pulmonic Valve There is no pulmonic regurgitation. Mitral Valve There is no mitral valve stenosis. There is moderate mitral valve regurgitation. Tricuspid Valve There is mild to moderate tricuspid valve regurgitation. Moderate pulmonary hypertension, estimated pulmonary arterial systolic pressure is 50 mmHg. Pericardium/Pleural There is small-moderate circumferential pericardial effusion. More significant pericardial effusion adjacent to right atrium. No evidence of pericardial tamponade. Inferior Vena Cava Dilated inferior vena cava with <50% collapse upon inspiration consistent with significantly elevated right atrial pressure, 15 mmHg. Aorta The aortic root size at the sinus of Valsalva is normal. Left Ventricular Outflow Tract Name Value Normal
[2020-02-18 07:12] LABS: Partial Thromboplastin Time 124.2 SECONDS (22.3-36.8)
[2020-02-18 07:31] LABS: Lactic Acid 0.8 mmol/L (0.7-2.1)
[2020-02-18 07:34] LABS: Albumin Level 2.6 g/dL (3.5-5.1)
[2020-02-18 07:35] LABS: Alanine Aminotransferase 73 U/L (4-50); Alkaline Phosphatase 58 U/L (38-126); Aspartate Amino Transferase 23 U/L (17-59); Bilirubin,Total 0.5 mg/dL (0.2-1.3); Blood Urea Nitrogen 18 mg/dL (9-20); Calcium 8.3 mg/dL (8.4-10.2); Carbon Dioxide 31 mmol/L (22-30); Chloride 101 mmol/L (98-107); Estimated CRCL calculation 48 ml/min; Estimated Glomerular Filt Rate > 60; Glucose 97 mg/dL (75-110); Potassium 3.6 mmol/L (3.4-5.0); Sodium 135 mmol/L (137-145)
[2020-02-18 08:27] LABS: CRP 3.4 mg/dL (<1.0)
[2020-02-18] MEDS: FLUTICASONE PROP 110 MCG INHALER 12 GM (*SP) 1 PUFF INHALATION ×2 (08:44→19:07)
[2020-02-18] MEDS: FUROSEMIDE 20 MG TABLET PO (09:42)
[2020-02-18] MEDS: POTASSIUM CHLORIDE 20 MEQ TABLET.ER PO (09:43)
[2020-02-18] MEDS: FERROUS SULFATE 324 MG TABLET PO ×2 (09:43→17:44)
[2020-02-18] MEDS: MEXILETINE HCL 150 MG CAPSULE PO ×3 (09:44→17:43)
[2020-02-18] MEDS: GABAPENTIN 300 MG CAPSULE PO ×3 (09:44→17:44)
[2020-02-18] MEDS: Linaclotide [Linzess] 145 MCG CAPSULE 290 EACH PO (12:17)
[2020-02-18] MEDS: ROFLUMILAST 500 MCG TABLET PO (12:17)
--- NOTE | 2020-02-18 12:47 | PHAR ---
HOME MEDICATIONS VERIFIED BY PHARMACY: CAMIS 290 MCG CAPSULES 1 PO DAILY RX#[id number] DALIRESP 500MCG TABLETS 1 TABLET PO DAILY RX#[id number]
--- NOTE | 2020-02-18 12:54 | PM.IMPN ---
Progress Note: A&P Assessment and Plan (1) Pulmonary embolism: Qualifiers: Acute cor pulmonale presence: without acute cor pulmonale Chronicity: acute Pulmonary embolism type: other Qualified Code(s): I26.99 - Other pulmonary embolism without acute cor pulmonale Code(s): I26.99 - Other pulmonary embolism without acute cor pulmonale Status: Acute Assessment and Plan: Chest CTA 02/15 revealed PE with low clot burden in anterior subsegmental pulmonary arteries of the right upper lobe. Patient is hemodynamically stable. Venous doppler negative for DVT. Discussed with Dr. Dunham and will discontinue heparin gtt at this time due to pericardial effusion and concern for possible hemopericardium (2) Pericardial effusion: Code(s): I31.3 - Pericardial effusion (noninflammatory) Status: Acute Assessment and Plan: Chest CTA with evidence of pericardial effusion. Echo performed today with small-moderate circumferential pericardial effusion without evidence of pericardial tamponade. He is tachycardic. BP at baseline is low per pt. He is afebrile. He does endorse dyspnea and has JVD on physical exam. Will consult cardiology, recommendations are greatly appreciated (3) Postobstructive pneumonia: Code(s): J18.9 - Pneumonia, unspecified organism Status: Acute Assessment and Plan: CXR and CTA on 02/17/20 reveal a combination of atelectasis and pneumonia. The pt was recently treated for pneumonia during 02/06-02/11 with 5 days of Ceftriaxone and Azithromycin IV and discharged on 5 day course of PO cefdinir. MRSA culture pending. Continue bronchodilators PRN Continue guaifenesin Continue oxygen supplementation to maintain SPO2 >92% Blood cultures NGTD Dr. Dunham is on board and recommendations are appreciated. Will continue zosyn for now. Procalcitonin pending. CRP elevated at 3.4. Recommended follow up CXR in 5-6 weeks from initial pneumonia episode on 02/06 (4) Sepsis: Qualifiers: Sepsis acute organ dysfunction status: without acute organ dysfunction Sepsis type: sepsis due to unspecified organism Qualified Code(s): A41.9 - Sepsis, unspecified organism Code(s): A41.9 - Sepsis, unspecified organism Status: Acute Assessment and Plan: Patient met SIRS criteria with tachycardia and tachypnea at admission. Suspected source of infection is pneumonia. Patient is afebrile and without leukocytosis. Blood cultures with NGTD. Lactic acid WNL. Continue IV Zosyn for PNA Continue to monitor (5) Pleural effusion: Code(s): J90 - Pleural effusion, not elsewhere classified Status: Acute Assessment and Plan: Pt has moderate right and small left pleural effusion on CTA. Right pleural effusion appears to be increased size from prior imaging. Pt will need thoracentesis. He was on ASA and plavix [employer]. Per radiology, patient needs to be off Plavix for 5 days prior to thoracentesis. Discussed with Dr. Dunham. Last dose of plavix was 02/16. Last dose of ASA was prior to admission. Continue heparin until 2 hours prior to procedure. Will perform cytology on pleural fluid (6) COPD (chronic obstructive pulmonary disease): Qualifiers: COPD type: unspecified COPD Qualified Code(s): J44.9 - Chronic obstructive pulmonary disease, unspecified Code(s): J44.9 - Chronic obstructive pulmonary disease, unspecified Status: Chronic Assessment and Plan: Does not appear to be in acute exacerbation. Continue Roflumilast Continue scheduled nebulizer treatments Continue symbicort inhaler per Dr. Dunham Wean O2 as tolerated, maintain SPO2 >92% (7) Squamous cell carcinoma of left lung: Code(s): C34.92 - Malignant neoplasm of unspecified part of left bronchus or lung Status: Chronic Assessment and Plan: Patient has metastatic non-small cell squamous cell carcinoma which was diagnosed in
[2020-02-18 13:41] LABS: Partial Thromboplastin Time > 200.0 SECONDS (22.3-36.8)
--- NOTE | 2020-02-18 16:25 | PM.CNCAR ---
Assessment and Plan Additional Plan 74-year-old gentleman with coronary artery disease now has a profound, severe ischemic cardiomyopathy and has a small to moderate circumferential pericardial effusion that undoubtedly is malignant given his history. He is not in a state of decompensation of heart failure. He does have a moderate size right pleural effusion and also undoubtedly is malignant there are plans to potentially tap this to improve his mechanics of breathing for humanitarian /palliative reasons. The principal cardiac decision in my opinion the centers around his defibrillator device. Again I had a long discussion with the patient as well as his established confectionery drops machine operator at [facility]. The patient would like to have the defibrillator features of the device deactivated after he returns to home so that if he has a cardiac arrest at home he is allowed to have natural occur and not to be resuscitated any further. He would not like to have a turned off in the hospital because obviously with the visitor restrictions at this time he does not wish to while his was at home and they are not together. I will see that we contact the [employer] physician relations representative who has indicated to me today that they will be capable of going to his residence and deactivating the ICD features of the device at that time Ashwin Lopez MD [facility] History of Present Illness History of Present Illness Consult date/time: date of service:02/18/20 16:25 Reason For Visit: postobstructive pneumonia,pulmonary embolism Narrative: This is a very pleasant but unfortunate 74-year-old man with a history of coronary artery disease, ischemic cardiomyopathy and a recent diagnosis of advanced squamous cell carcinoma of the lung. He was hospitalized at [place] yesterday with increasing shortness of breath which appears to be due to his underlying lung disease and cancer and also due to an enlarging right pleural effusion which undoubtedly is malignant. According to the charts the pulmonary data security consultant is considering tapping that effusion for palliative reasons to improve his mechanics of breathing at this time. We have been consulted to see him because he had an echocardiogram done yesterday which was read by a different confectionery drops machine operator a as severe, profound left ventricular systolic dysfunction as well as a small to moderate circumferential pericardial effusion with no stigmata of cardiac tamponade. The patient had previously been taking lisinopril for his cardiomyopathy over the last couple of months as an outpatient that has been stopped because of problematic hypotension. He is currently not reporting any orthopnea PND or accumulating edema. He has not had any chest pain recently. Because of his ischemic cardiomyopathy does have a permanently implanted [employer] defibrillator device. He has not had any recent shocks from his device his cause analyst / cardiology team at [facility] have performed a V-tach ablation on him in the last couple of years which has successfully ablated the ventricular arrhythmias that he was having prior to implanting the device. According to the office notes the device is functioning properly. I had a long discussion with the patient at the time of this consultation about his wishes regarding end of life decisions because it is clear his malignancy is advancing and his heart disease is also advancing. His prognosis for survival much longer is very poor. It was my impression that many patients in this situation would not prefer to have further at defibrillation in the instance of Pam malignant arrhythmia and the patient agrees with this concept and this decision. Since he is a patient of 1 of the confectionery drops machine operator, Dr. Delvalle at [facility] I did call her on the telephone as well and she fully supports the decision that he is making to turn off the device. The patient however is would like the device turned off after he returns t
[2020-02-18] MEDS: ALPRAZOLAM 0.5 MG TABLET 1 MG PO ×2 (17:50→20:09)
[2020-02-18] MEDS: MEGESTROL ACETATE (*CHEMO) ORAL SUSP 40 MG/ML SYR 800 MG PO (20:05)
[2020-02-18] MEDS: CENTRAL LINE FLUSH 20 ML IV PUSH (20:05)
[2020-02-18] MEDS: SIMVASTATIN 20 MG TABLET PO (20:07)
[2020-02-18] MEDS: AMITRIPTYLINE HCL 25 MG TABLET PO (20:08)
[2020-02-18] MEDS: ZOLPIDEM TARTRATE 5 MG TABLET 10 MG PO (20:09)
[2020-02-18 20:14] LABS: Partial Thromboplastin Time 41.7 SECONDS (22.3-36.8)
[2020-02-19] VITALS (14 sets, daily range): BP systolic 107–115; BP diastolic 67–78; PULSE 80–110; RESP 16–30; TEMP 36.3–36.6; O2SAT 96–100
[2020-02-19] MEDS: IPRATROPIUM BR 0.02% INH SOLN 0.5 MG/2.5 ML VIAL INHALATION ×2 (01:37→08:16)
[2020-02-19] MEDS: CENTRAL LINE FLUSH 10 ML IV PUSH ×2 (05:04→12:10)
[2020-02-19] MEDS: CENTRAL LINE FLUSH 20 ML IV PUSH ×2 (05:04→08:39)
[2020-02-19 05:14] LABS: Basophils Percent Auto 0.6 % (0.2-1.2); Eosinophils Absolute Auto 0.1 K/mm3 (0-0.3); Hematocrit 34.5 % (42.0-52.0); Hemoglobin 10.6 g/dL (14.0-18.0); Immature Granulocyte Absolute 0.05 K/mm3 (0.00-0.031); Immature Granulocyte Percent A 0.7 % (0-0.5); Lymphocytes Absolute Auto 0.64 K/mm3 (0.9-3.2); Lymphocytes Percent Auto 9.2 % (18.3-44.2); Mean Corpuscular HGB Conc 30.7 g/dl (32-36); Mean Corpuscular Hemoglobin 30.2 pg (26-34); Mean Corpuscular Volume 98.3 fl (80-100); Mean Platelet Volume 9.6 fl (7.4-10.4); Monocytes Absolute Auto 0.5 K/mm3 (0.1-0.6); Monocytes Percent Auto 7.7 % (2.6-8.5); Neutrophils Absolute Auto 5.5 K/mm3 (1.3-6.7); Neutrophils Percent Auto 79.8 % (45.5-73.1); Platelet Count Result 201 k/mm3 (150-375); Red Blood Count 3.51 M/mm3 (4.6-6.20); Red Cell Distribution Width 14.6 % (11.5-14.5); White Blood Count 6.9 K/mm3 (4.5-10.0)
[2020-02-19 05:30] LABS: Alanine Aminotransferase 61 U/L (4-50); Alkaline Phosphatase 62 U/L (38-126); Aspartate Amino Transferase 22 U/L (17-59); Bilirubin,Total 0.6 mg/dL (0.2-1.3); Blood Urea Nitrogen 18 mg/dL (9-20); Calcium 8.5 mg/dL (8.4-10.2); Carbon Dioxide 28 mmol/L (22-30); Chloride 99 mmol/L (98-107); Estimated CRCL calculation 48 ml/min; Estimated Glomerular Filt Rate 59; Glucose 96 mg/dL (75-110); Magnesium 1.8 mg/dL (1.6-2.3); Potassium 4.2 mmol/L (3.4-5.0); Sodium 134 mmol/L (137-145)
[2020-02-19] MEDS: FLUTICASONE PROP 110 MCG INHALER 12 GM (*SP) 1 PUFF INHALATION (08:10)
--- NOTE | 2020-02-19 08:27 | PC.NURSE ---
Per Ultrasound, pt can receive oral medications with a sip of water this morning.
[2020-02-19] MEDS: FERROUS SULFATE 324 MG TABLET PO (08:48)
[2020-02-19] MEDS: GABAPENTIN 300 MG CAPSULE PO ×2 (08:48→12:13)
[2020-02-19] MEDS: FUROSEMIDE 20 MG TABLET PO (08:48)
[2020-02-19] MEDS: MEXILETINE HCL 150 MG CAPSULE PO ×2 (08:48→12:13)
[2020-02-19] MEDS: POTASSIUM CHLORIDE 20 MEQ TABLET.ER PO (08:49)
--- NOTE | 2020-02-19 09:04 | PCPTNOTE ---
Patient refused treatment this session due to awaiting test/ procedure.
[2020-02-19 09:14] LABS: Lactate Dehydrogenase 346 U/L (313-618)
--- NOTE | 2020-02-19 09:36 | PM.PNCARD ---
Progress Note: A&P Additional Plan anticipate discharge to home later today after the thoracentesis is completed. The patient is truly end-stage regarding his malignancy and his heart disease. We have arranged for the [employer] equal opportunity representative to visit his home and deactivate his defibrillator after he arrives at home no further cardiac recommendations Ashiwn Lopez MD [facility] Subjective Date/time seen: date of service:02/19/20 09:36 Interval history: Follow-up visit for patient with end-stage ischemic cardiomyopathy also with advanced metastatic lung cancer. Patient feels very weak, anticipating palliative thoracentesis of right-sided pleural effusion later this morning. My understanding is planned for discharge shortly after that is completed. We have made arrangements to have his ICD deactivated which is his request after he arrives at his home. Exam Const: General: comfortable Other: Very weak debilitated elderly man otherwise appears to be comfort HENMT: Mouth: Yes dry mucous membranes Eyes: Sclera: sclerae normal Pupils: Equal, round and reactive pupils present Neck: Neck: supple and no JVD Thyroid: thyroid normal Resp: Effort & Inspection: normal respiratory effort Other: decreased breath sounds in the right side Cardio: Rate: regular rate Rhythm: regular rhythm GI: Auscultation: normal bowel sounds Skin: General skin exam: normal color Neuro: Cognition (Neuro): normal cognition Extrem: General: normal to inspection Objective Data Vital Signs Vital Signs: Vital Signs - 24 hr 02/18/20 09:44 02/18/20 12:00 02/18/20 12:18 Temperature Pulse Rate 109 H 102 H 104 H Respiratory Rate 20 Blood Pressure Pulse Oximetry 92 02/18/20 13:30 02/18/20 13:38 02/18/20 14:00 Temperature 36.2 C L Pulse Rate 102 H 103 H 110 H Respiratory Rate 20 20 18 Blood Pressure 101/68 Pulse Oximetry 98 02/18/20 16:00 02/18/20 17:43 02/18/20 19:08 Temperature Pulse Rate 116 H 109 H 101 H Respiratory Rate 20 Blood Pressure Pulse Oximetry 02/18/20 19:11 02/18/20 19:14 02/18/20 19:29 Temperature 36.6 C Pulse Rate 100 99 Respiratory Rate 20 14 Blood Pressure 109/67 Pulse Oximetry 96 100 02/18/20 20:00 02/19/20 00:00 02/19/20 01:37 Temperature Pulse Rate 104 H 94 108 H Respiratory Rate 22 H Blood Pressure Pulse Oximetry 02/19/20 01:42 02/19/20 04:00 02/19/20 04:57 Temperature 36.6 C Pulse Rate 110 H 95 80 Respiratory Rate 22 H 16 Blood Pressure 115/73 Pulse Oximetry 97 02/19/20 08:00 02/19/20 08:10 02/19/20 08:17 Temperature Pulse Rate 89 91 94 Respiratory Rate 20 20 Blood Pressure Pulse Oximetry 02/19/20 08:48 Temperature Pulse Rate 98 Respiratory Rate Blood Pressure Pulse Oximetry Intake/Output Intake/Output: Intake & Output 02/16/20 02/17/20 02/18/20 02/19/20 23:59 23:59 23:59 23:59 Intake Total 1288 1349 300 Output Total 350 200 Balance 938 1149 300 Meds/Results Medications: Active Medications Generic Name Dose Route Start Last Admin Trade Name Freq PRN Reason Stop Dose Admin Alprazolam 1 mg 02/17/20 03:59 02/18/20 20:09 Xanax PO 1 mg TID PRN Administration Anxiety Amitriptyline HCl 25 mg 02/17/20 21:00 02/18/20 20:08 Elavil PO 25 mg HS SYLVIA Administration Budesonide/Formoterol Fumarate 2 puff 02/17/20 20:00 02/19/20 08:16 Symbicort 160-4.5 Mcg (*Sp) Inhaler INHALATION 2 puff Q12HRT SYLVIA Administration Dicyclomine HCl 20 mg 02/17/20 03:59 Bentyl Capsule PO DAILY PRN Abdominal Cramping Ferrous Sulfate 324 mg 02/17/20 08:00 02/19/20 08:48 Ferrous Sulfate PO 324 mg BIDWM YSLVIA Administration Fluticasone Propionate 1 puff 02/17/20 08:00 02/18/20 19:07 Flovent INHALATION 1 puff Q12HRT SYLVIA Administration Furosemide 20 mg 02/17/20 09:00 02/19/20 08:48 Lasix Tablet PO 20 mg
--- NOTE | 2020-02-19 10:43 | PM.IMPN ---
Progress Note: A&P Assessment and Plan (1) Pulmonary embolism: Qualifiers: Acute cor pulmonale presence: without acute cor pulmonale Chronicity: acute Pulmonary embolism type: other Qualified Code(s): I26.99 - Other pulmonary embolism without acute cor pulmonale Code(s): I26.99 - Other pulmonary embolism without acute cor pulmonale Status: Acute Assessment and Plan: Chest CTA 02/15 revealed PE with low clot burden in anterior subsegmental pulmonary arteries of the right upper lobe. Patient is hemodynamically stable. Venous doppler negative for DVT. Discussed with Dr. Dunham and heparin gtt was discontinued due to concern for bleeding with his effusions since the PE is subsegmental and his dyspnea was likely due to his pleural and pericardial effusions. Dr. Pride has recommended low dose xarelto (10mg QD) since he does have CA and is at risk for recurrent VTE which may be initiated 24 hours after his thoracentesis (2) Pericardial effusion: Code(s): I31.3 - Pericardial effusion (noninflammatory) Status: Acute Assessment and Plan: Chest CTA revealed evidence of pericardial effusion. Cardiology was consulted. Recommendations are greatly appreciated. The pericardial effusion is likely malignant. The patient discussed end of life care with Dr. Lopez and expressed that he would like to have his defibrillator device deactivated one he gets home. He has expressed that he would like to proceed with comfort care. (3) Postobstructive pneumonia: Code(s): J18.9 - Pneumonia, unspecified organism Status: Acute Assessment and Plan: CXR and CTA on 02/17/20 reveal a combination of atelectasis and pneumonia. The pt was recently treated for pneumonia during 02/06-02/11 with 5 days of Ceftriaxone and Azithromycin IV and discharged on 5 day course of PO cefdinir. Blood cultures reveal NGTD. Continue bronchodilators Continue guaifenesin Continue oxygen supplementation to maintain SPO2 >92% The pt has expressed that he wants to discharge home and is considering comfort care. He will meet to discuss hospice with the hospice team tomorrow at home. Will prescribe augmentin PO at discharge. I discussed that if he decides not to proceed with hospice after his discussion with his and the hospice team, he will need to follow-up with pulmonology with repeat CXR. (4) Sepsis: Qualifiers: Sepsis acute organ dysfunction status: without acute organ dysfunction Sepsis type: sepsis due to unspecified organism Qualified Code(s): A41.9 - Sepsis, unspecified organism Code(s): A41.9 - Sepsis, unspecified organism Status: Acute Assessment and Plan: Patient met SIRS criteria with tachycardia and tachypnea at admission. Suspected source of infection is pneumonia. Patient is afebrile and without leukocytosis. Blood cultures revealed with NGTD. Lactic acid WNL. He is hemodynamically stable. Will continue PO augmentin at discharge for treatment of PNA Continue to monitor (5) Pleural effusion: Code(s): J90 - Pleural effusion, not elsewhere classified Status: Acute Assessment and Plan: Pt underwent successful thoracentesis today and 1000ml of yellow fluid was removed. Pleural pH is 7.438. Pleural neutrophils 84 and pleural RBC 454. Pleural gram stain revealed moderate white blood cells without any organisms visualized. Additional studies including pleural pH and pleural LDH are pending. The pt reports significant improvement in his dyspnea following thoracentesis. It is likely that his effusion is multifactorial and due to malignancy and pneumonia. He has expressed the desire to go home with comfort care. He meets with the hospice team tomorrow. He was discharged on augmentin PO for his pneumonia. (6) COPD (chronic obstructive pulmonary disease): Qualifiers: COPD type: unspecified COPD Qualified Code(s): J44.9 - Chronic ob
[2020-02-19 12:05] LABS: pH Pleural Fluid 7.438 (7.210-7.500)
[2020-02-19 12:31] LABS: Appearance Pleural Fluid Hazy (Clear); Color Pleural Fluid Yellow (Colorless); Nucleated Cell Pleural Fluid 400 /uL (0-1000); Pleural fluid source Pleural fluid
[2020-02-19 12:32] LABS: Lymphocytes Pleural Fluid 6 %; Macrophages Pleural Fluid 2 %; Monocytes Pleural Fluid 8 %; Neutrophils Pleural Fluid 84 % (0-25); RBC Pleural Fluid 454 /uL (0-0)
--- NOTE | 2020-02-19 13:40 | PCOTNOTE ---
Attempted to see patient twice this date. First attempt this am, pt was getting ready to go for testing. Second attempt this pm, patient declined stating he was going home.
--- NOTE | 2020-02-19 14:30 | PCPTNOTE ---
Attempted Therapy session. Pt declined treatment stating he was possibly going hospice and did not want to participate in therapy at this time.
[2020-02-19] MEDS: HEPARIN SOD FLUSH 500 UNITS/5 ML SYRINGE IV PUSH (17:19)
--- NOTE | 2020-02-19 19:18 | CONS_ITS ---
DATE OF CONSULTATION: 02/19/2020 REASON FOR CONSULTATION: Metastatic lung cancer. HISTORY OF PRESENTING ILLNESS: This is a 74-year-old male with metastatic non-small cell lung cancer, squamous cell carcinoma histology diagnosed in April 2019. The patient had 4 rounds of chemotherapy with carboplatin, Taxol and Keytruda, completed September 2019, was recently started on maintenance Keytruda treatment. Unfortunately, CT scan on January 20, 2020 showed interval enlargement of the left upper lobe nodule with new nodule in the right lower lobe. This was concerning for progressive disease, but patient was not a candidate for any further cytotoxic chemotherapy. He now came into the hospital with worsening shortness of breath and was diagnosed to have postobstructive pneumonia and small pulmonary embolism. The patient was already on aspirin and Plavix for coronary artery disease and stent placement a couple of years ago. He denies any bleeding and bruising. He was quite tired and weak with some apparent weight loss. He was just recently discharged from the hospital after being admitted early this month. REVIEW OF SYSTEMS: 12-point review of systems was reviewed and as per HPI, otherwise negative. PAST MEDICAL HISTORY: Anxiety, arthritis, non-small cell lung cancer, metastatic disease, coronary artery disease, COPD, hyperlipidemia, kidney stone, irritable bowel syndrome, history of RI, status post stent placement, pacemaker placement, right ORIF, sleep apnea. PAST SURGICAL HISTORY: Cardio radiofrequency ablation, coronary artery disease, status post stent placement, ORIF of the right knee. FAMILY HISTORY: Heart disease in the family. SOCIAL HISTORY: The patient is , lives with the . He quit smoking in May 2019 after smoking for about 40 years duration. HOME MEDICATIONS: Reviewed. ALLERGIES: REVIEWED. PHYSICAL EXAMINATION: GENERAL: This patient is an elderly male, looks quite tired and fatigued. Alert and oriented. VITAL SIGNS: Per nursing note. HEENT: Normocephalic, atraumatic. Clear oropharynx. LUNGS: Clear to auscultation bilaterally. CARDIOVASCULAR: Regular rate and rhythm. No murmurs. ABDOMEN: Soft, nontender, nondistended. Bowel sounds are positive in all 4 quadrants. No hepatosplenomegaly. LABORATORY DATA: WBC 6.9, hemoglobin 10.6, platelet 201,000. Creatinine 1.2, total bilirubin 0.6, LDH 346. ASSESSMENT AND PLAN: 1. Metastatic non-small cell lung cancer. The patient is status post chemotherapy with carboplatin, Taxol and Keytruda with poor response. He was recently started on maintenance treatment with Keytruda, but unfortunately has been back to the hospital several times since then. After discussion with the patient, we decided to discontinue any further treatment, as the patient has a progressive disease and his former status has been deteriorating. I agree with hospice consultation and comfort care measures only. 2. Pleural effusion. Status post thoracentesis with clinical improvement. Cytology is pending. 3. Pulmonary embolism. CT chest showed pulmonary embolism with low clot burden. The patient was already on Plavix and aspirin, which has been discontinued now. I would suggest starting low dose of Xarelto like 10 mg a day due to the risk of bleeding. 4. Coronary artery disease. Status post stent placement. The patient will discontinue aspirin and Plavix due to risk of bleeding, as patient is going to start Xarelto. NAVIN MARINELLI M.D. ONLINE MERCHANDISING MANAGER ONLINE MERCHANDISING MANAGER D Gavi MT: Shonda
--- NOTE | 2020-02-19 21:17 | PM.DS ---
DS: Diagnosis Admitting Diagnosis Admitting Diagnosis: Other pulmonary embolism without acute cor pulmonale Discharge Diagnosis (1) Multiple subsegmental pulmonary emboli without acute cor pulmonale: Code(s): I26.94 - Multiple subsegmental pulmonary emboli without acute cor pulmonale Status: Acute (2) Pericardial effusion: Code(s): I31.3 - Pericardial effusion (noninflammatory) Status: Acute (3) Postobstructive pneumonia: Code(s): J18.9 - Pneumonia, unspecified organism Status: Acute (4) Sepsis: Qualifiers: Sepsis acute organ dysfunction status: without acute organ dysfunction Sepsis type: sepsis due to unspecified organism Qualified Code(s): A41.9 - Sepsis, unspecified organism Code(s): A41.9 - Sepsis, unspecified organism Status: Acute (5) Pleural effusion: Code(s): J90 - Pleural effusion, not elsewhere classified Status: Acute (6) COPD (chronic obstructive pulmonary disease): Qualifiers: COPD type: unspecified COPD Qualified Code(s): J44.9 - Chronic obstructive pulmonary disease, unspecified Code(s): J44.9 - Chronic obstructive pulmonary disease, unspecified Status: Chronic (7) Squamous cell carcinoma of left lung: Code(s): C34.92 - Malignant neoplasm of unspecified part of left bronchus or lung Status: Chronic (8) Congestive heart failure: Code(s): I50.9 - Heart failure, unspecified Status: Chronic (9) Cholecystitis, unspecified: Code(s): K81.9 - Cholecystitis, unspecified Status: Acute (10) Protein calorie malnutrition: Code(s): E46 - Unspecified protein-calorie malnutrition Status: Acute (11) Normocytic anemia: Code(s): D64.9 - Anemia, unspecified Status: Chronic (12) DVT prophylaxis: Code(s): Z29.9 - Encounter for prophylactic measures, unspecified Status: Acute (13) CAD (coronary artery disease): Qualifiers: Associated angina: without angina Coronary Disease-Associated Artery/Lesion type: [place] artery [place] vs. transplanted heart: [place] heart Qualified Code(s): I25.10 - Atherosclerotic heart disease of [place] coronary artery without angina pectoris Code(s): I25.10 - Atherosclerotic heart disease of [place] coronary artery without angina pectoris Status: Chronic (14) Hyperlipidemia: Qualifiers: Hyperlipidemia type: unspecified Qualified Code(s): E78.5 - Hyperlipidemia, unspecified Code(s): E78.5 - Hyperlipidemia, unspecified Status: Chronic (15) Diarrhea: Code(s): R19.7 - Diarrhea, unspecified Status: Acute DS: Summary Hospital Course Hospital Course: Mr. Shah is a 74 y.o. male with PMH significant for metastatic non-small cell squamous cell carcinoma, ischemic cardiomyopathy, COPD, hypertension, coronary artery disease, hyperlipidemia, and chronic anemia who presented to the ED via EMS for dyspnea. He was recently hospitalized 02/06-02/11 for pneumonia. He stated that he felt much better during and following his hospital stay until his dyspnea returned 4 days later. Initial workup in the ED included CBC with chronic normocytic anemia and no leukocytosis, CMP with Cr 0.9, BUN 20, and ALT 120. BNP was >33304. CXR which revealed opacities in the right mid to lower and left lower lungs and bilateral pleural effusions, worse on the right. Chest CTA revealed PE with low clot burden in a couple anterior subsegmental pulmonary arteries of the RUL, moderate right and small left pleural effusion, and known primary lung cancer. The pt was started on heparin gtt and IV zosyn and admitted to the hospitalist service for further evaluation and treatment. Dr. Dunham was consulted. Thoracentesis was recommended and ASA and plavix were held for thoracentesis. Echo was ordered and revealed profound left ventricular systolic function with EF 15-20%, abnormal diastolic function, moderate mitral
[2020-02-20 19:32] LABS: Glucose Pleural Fluid 105 mg/dL; LDH Pleural Fluid 76 U/L; Total Protein Pleural Fluid <3.0 g/dL
[2020-02-21 03:33] LABS: Amylase, Pleural Fluid 21 U/L
[2020-02-21 06:33] LABS: Procalcitonin 0.21 ng/mL (<0.10)
[2020-02-21 19:24] LABS: Albumin Pleural Fluid 1.1 g/dL
== END 2020-02-19 17:56 | disposition home or self-care (01) | DRG 871 ==
LOC: ANHED 22:43 → ANH3MED 02-17 01:37
PROVIDERS: Internal Medicine Critical Care Medicine; Physician Assistant; Admitting Provider Internal Medicine; Emergency Provider General Practice; PCP Internal Medicine; Visit Provider Physician Assistant
DX: A41.9 Sepsis, unspecified organism (principal); J18.9 Pneumonia, unspecified organism; I26.99 Other pulmonary embolism without acute cor pulmonale; C34.12 Malignant neoplasm of upper lobe, left bronchus or lung; C79.9 Secondary malignant neoplasm of unspecified site; J90 Pleural effusion, not elsewhere classified; E46 Unspecified protein-calorie malnutrition; I31.3 Pericardial effusion (noninflammatory); I50.32 Chronic diastolic (congestive) heart failure; J44.9 Chronic obstructive pulmonary disease, unspecified; I44.7 Left bundle-branch block, unspecified; I25.10 Atherosclerotic heart disease of native coronary artery without angina pectoris; H26.9 Unspecified cataract; E78.5 Hyperlipidemia, unspecified; K58.9 Irritable bowel syndrome, unspecified; I25.2 Old myocardial infarction; G47.30 Sleep apnea, unspecified; Z68.24 Body mass index [BMI] 24.0-24.9, adult; Z87.891 Personal history of nicotine dependence; K81.1 Chronic cholecystitis; D64.9 Anemia, unspecified; I25.5 Ischemic cardiomyopathy; M19.90 Unspecified osteoarthritis, unspecified site; J45.909 Unspecified asthma, uncomplicated; Z95.5 Presence of coronary angioplasty implant and graft; Z87.442 Personal history of urinary calculi; Z79.82 Long term (current) use of aspirin; Z79.02 Long term (current) use of antithrombotics/antiplatelets; F41.8 Other specified anxiety disorders
CPT/HCPCS: 32555; 36415; 36600; 71046; 71275; 80053; 81001; 82042; 82150; 82375; 82805; 82945; 83050; 83605; 83615; 83735; 83880; 83986; 84145; 84157; 84311; 84478; 85025; 85610; 85730; 86140; 87015; 87040; 87070; 87075; 87081; 87102; 87116; 87205; 87206; 88104; 88108; 88305; 89051; 93005; 93306; 93970; 94640; 96365; 96366; 96367; 96375; 97161; 97165; 99285; A9270; G0378; J1644; J2405; J2543; Q9967